=== PATIENT | male | born 1975 | race Caucasian/White ===

== ENCOUNTER 2021-01-21 09:54 | Emergency (ER) | payer SELFPAY ==
[2021-01-21 10:29] VITALS: BP 150/87; PULSE 78; RESP 18; TEMP 36.4; O2SAT 97; BMI 31.6
[2021-01-21 10:33] VITALS: BP 150/87; PULSE 73; RESP 20; TEMP 36.7; O2SAT 95
--- NOTE | 2021-01-21 10:35 | ED_ITS ---
Documented by User: MANUEL Tiwari 01/21/21 12:04 HPI - SOB/Dyspnea General: Chief Complaint: Shortness of Breath/Dyspnea Stated Complaint: DIFF BREATHING: ASTHMA Time Seen by Provider: 01/21/21 10:34 History of Present Illness: HPI Narrative: Patient is a 45-year-old male comes to the ED with wheezing. Patient has a history of asthma. He says he is currently out of his rescue inhaler and needs to get a refill. His wheezing s tarted on Wednesday. He has been out of his rescue inhaler and his wheezing since Wednesday is just progressed. Today he started feeling a little tired that is having a cough as well that is nonproductive and dry. Denies any fever, chills, chest pain, abdominal pain, nausea/vomiting, bladder or bowel symptoms. He just moved to the area and does not currently have a PCP, but is going to start calling around to get established with one. Associated symptoms: Deny abdominal pain, chest pain, fever(s), nausea, orthopnea, palpitations or vomiting Review of Systems Const: Denies: fever(s), chills or fatigue Eyes: Denies: change in vision or eye discomfort ENMT: Denies: throat pain, odynophagia, nasal discharge or nasal congestion Card: Denies: chest pain, palpitations, edema, swelling of feet/ankles, dyspnea on exertion or orthopnea Resp: Reports: dyspnea, non-productive cough and wheezing; Denies: productive cough GI: Denies: abdominal pain, nausea, vomiting, diarrhea, constipation or hematochezia : Denies: flank pain, difficulty urinating, dysuria or hematuria Musc: Denies: neck pain, back pain or extremity swelling Skin/Breast: Denies: rash or new lesions Neuro: Denies: headache(s), numbness in extremities or weakness in extremities Physical Exam Const: COMMON NORMALS: no acute distress, patient oriented x3 and alert GENERAL APPEARANCE: cooperative and comfortable HENMT: COMMON NORMALS: normocephalic HEAD & SCALP: normocephalic MOUTH: Normal oral and palatal mucosa present THROAT: posterior oropharynx normal and uvula midline Neck/C-Spine: COMMON NORMALS: supple GENERAL: Yes normal visual inspection Resp: COMMON NORMALS: normal respiratory effort, No retractions and No use of accessory muscles EFFORT & INSPECTION: Yes able to speak in complete sentences, No tachypneic, No respiratory distress and No labored AUSCULTATION: wheezes (Patient has expiratory wheezing throughout lungs bilaterally.) expiratory wheezes and throughout Cardio: COMMON NORMALS: regular rate, regular rhythm, S1 normal heart sound present, S2 normal heart sound present, No gallops present (Cardio), No clicks present (Cardio), No murmurs present (Cardio) and Peripheral pulses 2+ throughout RATE: regular rate RHYTHM: regular rhythm HEART SOUNDS: S1 normal heart sound present and S2 normal heart sound present PERIPHERAL PULSES: Peripheral pulses 2+ throughout GI: COMMON NORMALS: Normal to inspection, nondistended, normoactive bowel sounds present, Soft to palpation, non-tender and no masses PALPATION: Yes Soft to palpation : COMMON NORMALS: Yes no CVA tenderness BLADDER/KIDNEY EXAM: Yes no CVA tenderness Back/Pelvis: COMMON NORMALS: no CVA tenderness Extremity: COMMON NORMALS: normal to inspection Neuro: COMMON NORMALS: patient oriented x3 and moves all extremities SENSORIUM/ORIENTATION: Yes alert Skin: GENERAL SKIN EXAM: dry skin Course Reevaluation(s): Reevaluation #1: Listen to patient's lung sounds after he received DuoNeb breathing treatment. Lung sounds improved and wheezing improved. Patient says he feels a lot better and is able to breathe better. O2 sat was 98% while I was in the room. Patient did not appear to be in any labored breathing. Time: 11:21 Vital Signs: Vital signs: Vital Signs Temperature 98.1 F 01/21/21 10:33 Pulse Rate 81 01/21/21 11:32 Respiratory Rate 16 01/21/21 11:32 Blood Pressure 123/72 01/21/21 11:32 Pulse Oximetry 97 01/21/21 11:32 MDM - SOB/Dyspnea MDM Narrative: Medical decision making narrative: Patient is a 45-year-old male comes to the ED with wheezing and shortness of breath. He has a history of asthma and is currently out of his albuterol inhaler. Wheezing started on Wednesday. Patient appears nontoxic and in no acute distress. Vitals are stable and O2 sat is at 97% on room air. Patient has bilateral wheezing throughout the lungs upon auscultation. The rest of exam is benign. Chest x-ray showed no acute findings. Patient was given a DuoNeb breathing treatment while here in the ED and is lung sounds improved and wheezing improved. Patient was also given a dose of Solu-Medrol while here in the ED. Patient diagnosed with asthma with exacerbation and discharged home with a prescription for prednisone and an albuterol inhaler. He was told to follow-up with his PCP in 7 to 10 days for reevaluation. I offered to place a referral with case management for patient be established with a PCP but he refused and said he would like to call around on his own. Return to ED precautions given. Patient understood and agreed with plan. Imaging Data^: CXR: Attestation: I personally reviewed and interpreted this imaging study as follows: Radiologist's impression: [address] [place] [address] XRay Report Signed Patient: Aubrey Musa Unit #: [id number] : 1975 Age/Sex: 45 / M ADM Date: 01/21/21 Loc: ER Room/Bed: Attending Dr: Ordering Provider/Ordering MD: Lion Hobbs Date of Service: 01/21/21 Procedure(s): XR chest 1V portable [id number] Accession Number(s): [id number] Report Number: [id number] WS: [id number] PORTABLE CHEST HISTORY: wheezing COMPARISON: None available. Lungs are clear and well expanded. No pleural effusion or pneumothorax. Cardiac size: Normal. Mediastinum/Aorta: Normal mediastinum. No osseous abnormality seen. XR/XR chest 1V portable [id number] IMPRESSION: Unremarkable portable chest. Dictated By: Dayan Aponte DO Signed By: Dayan Aponte DO Signed Date/Time: 01/21/21 1119 DD/ 1118 Discharge Plan Discharge Patient Disposition: Home Clinical Impression: Asthma with exacerbation Qualifiers: Asthma severity: mild Asthma persistence: intermittent Qualified Code(s): J45.21 - Mild intermittent asthma with (acute) exacerbation Condition: Stable Prescriptions: New albuterol sulfate 90 mcg/actuation HFA aerosol inhaler 2 inh inhalation Q6H PRN (Reason: shortness of breath or wheezing) Qty: 8.5 RF: 0 prednisone 20 mg tablet 20 mg PO BID 5 Days Qty: 10 RF: 0 Discharge Orders: Discharge ED (Routine); Ordered 01/21/21 Ordered By: Lion Hobbs Discharge Diet: Regular Discharge Activity: Increase activity as tolerated Patient Instructions: Asthma (DC) Activity Restrictions/Additional Instructions: Follow-up with medical provider as directed. Schedule appointment to be seen by a primary care physician for follow-up in the next 7 to 10 days. Take medications as prescribed. You can start taking the the first dose of prescribed prednisone tomorrow. Return to the ER or your medical provider if condition worsens. Please read and understand discharge instructions. Thank you for choosing [facility] for your healthcare needs today. Please realize this is an emergency room and that we are providing you with a medical screening exam and this may not be complete and all inclusive of all the testing and or work up that you may need to determine your ailment or severity of your illness. It is very important that you follow up as instructed or that you return to the Emergency Department should you have concerns or if your condition changes or worsens in any way. Coding Level of Care Code ED Can Technician for Chg Fwd Exam Comprehensive Documented by User: Prabhjot Cavanaugh DO 01/21/21 13:42 HPI - SOB/Dyspnea General: Chief Complaint: Shortness of Breath/Dyspnea Stated Complaint: DIFF BREATHING: ASTHMA Time Seen by Provider: 01/21/21 10:34 Course Vital Signs: Vital signs: Vital Signs Temperature 98.1 F 01/21/21 10:33 Pulse Rate 81 01/21/21 11:32 Respiratory Rate 16 01/21/21 11:32 Blood Pressure 123/72 01/21/21 11:32 Pulse Oximetry 97 01/21/21 11:32 MDM - SOB/Dyspnea MDM Narrative: Medical decision making narrative: Reviewed chart with Lion by MANUEL agree with assessment and plan Discharge Plan Discharge Patient Disposition: Home Clinical Impression: Asthma with exacerbation Qualifiers: Asthma severity: mild Asthma persistence: intermittent Qualified Code(s): J45.21 - Mild intermittent asthma with (acute) exacerbation Condition: Stable Prescriptions: New albuterol sulfate 90 mcg/actuation HFA aerosol inhaler 2 inh inhalation Q6H PRN (Reason: shortness of breath or wheezing) Qty: 8.5 RF: 0 prednisone 20 mg tablet 20 mg PO BID 5 Days Qty: 10 RF: 0 Discharge Orders: Discharge ED (Routine); Ordered 01/21/21 Ordered By: Lion Hobbs Discharge Diet: Regular Discharge Activity: Increase activity as tolerated Patient Instructions: Asthma (DC) Activity Restrictions/Additional Instructions: Follow-up with medical provider as directed. Schedule appointment to be seen by a primary care physician for follow-up in the next 7 to 10 days. Take medications as prescribed. You can start taking the the first dose of prescribed prednisone tomorrow. Return to the ER or your medical provider if condition worsens. Please read and understand discharge instructions. Thank you for choosing [facility] for your healthcare needs today. Debora simeon realize this is an emergency room and that we are providing you with a medical screening exam and this may not be complete and all inclusive of all the testing and or work up that you may need to determine your ailment or severity of your illness. It is very important that you follow up as instructed or that you return to the Emergency Department should you have concerns or if your condition changes or worsens in any way. Coding Level of Care Code ED Can Technician for Ramandeep Cleaning Exam Comprehensive
--- NOTE | 2021-01-21 10:40 | XR_ITS ---
WS: [id number] PORTABLE CHEST HISTORY: wheezing COMPARISON: None available. Lungs are clear and well expanded. No pleural effusion or pneumothorax. Cardiac size: Normal. Mediastinum/Aorta: Normal mediastinum. No osseous abnormality seen. XR/XR chest 1V portable [id number] IMPRESSION: Unremarkable portable chest.
[2021-01-21] MEDS: ipratropium-albuterol 3 mL Neb 6 ML INHALATION (10:54)
[2021-01-21 10:57] VITALS: PULSE 74; RESP 22; O2SAT 97
[2021-01-21 10:58] VITALS: PULSE 79
[2021-01-21 11:04] VITALS: PULSE 85; RESP 20; O2SAT 94
[2021-01-21] MEDS: albuterol 8 gm MDI 2 PUFF INHALATION (11:04)
[2021-01-21 11:32] VITALS: BP 123/72; PULSE 81; RESP 16; O2SAT 97
--- NOTE | 2021-01-21 11:32 | PC.NURSE ---
THIS NURSE REASSESSED PATIENT. PATIENT FEELS MUCH BETTER AFTER BREATHING TREATMENT. DECREASED WHEEZING BILATERALLY.
== END 2021-01-21 11:39 | disposition home or self-care (01) ==
PROVIDERS: Emergency Provider Physician Assistant
DX: J45.21 Mild intermittent asthma with (acute) exacerbation (principal)
CPT/HCPCS: 71045; 94640; 96372; 99284; J2930; J3535

== ENCOUNTER 2021-01-24 11:46 | Inpatient (IN) | payer SELFPAY ==
[2021-01-24] VITALS (9 sets, daily range): BP systolic 133–144; BP diastolic 74–94; PULSE 64–90; RESP 16–20; TEMP 36.8–36.9; O2SAT 95–97; BMI 32.8
--- NOTE | 2021-01-24 12:18 | CT_ITS ---
WS: [id number] CT ABDOMEN PELVIS TECHNIQUE: Contrast-enhanced CT of the abdomen and pelvis with coronal and sagittal reformatted image s. CLINICAL INFORMATION: rule out obstruction/pathologies COMPARISON: None. DLP: 1720.[address] scans at [facility] use at least one of these dose optimization techniques: automated e xposure control; mA and/or kV adjustment per patient size (includes targeted exams where dose is matc hed to clinical indication); or iterative reconstruction. FINDINGS: Diffuse fatty infiltration liver. Normal portal vein and splenic vein. Normal gallbladder. Normal spl een. Normal GE junction. Lung bases are well aerated. Adrenal glands are normal. Normal renal parench ymal enhancement. No hydronephrosis. Normal pancreatic parenchymal enhancement. Normal portal vein an d splenic vein. Normal caliber abdominal aorta. A few sigmoid diverticuli. No evidence of acute diverticulitis. Mild right colon and cecal constipation. Postoperative changes at the ileocecal valve. Tiny amount of flui d in the right pericolic gutter. Fecalization of the terminal ileum. Distended loops of fluid-filled small bowel in the pelvis with mu cosal enhancement can be seen with enteritis including inflammatory bowel disease and/or developing p artial small bowel obstruction. A few prominent periaortic lymph nodes likely reactive. Proximal smal l bowel is more normal appearance. No free fluid in the pelvis. Normal lumbar spine. CT/CT abdomen pelvis w con* [id number] IMPRESSION: 1. Mild fluid-filled distention of small bowel loops in the pelvis and right l ower quadrant with fecalization terminal ileum. Findings likely due to small johanne wel enteritis including inflammatory bowel disease versus developing distal sma ll bowel obstruction. 2. Prior postoperative changes at the ileocecal valve. 3. Mild constipation right colon. Colon is otherwise unremarkable. 4. A few reactive periaortic lymph nodes. 5. No other acute findings.
[2021-01-24] MEDS: morphine 4 mg/mL SDV 1 mL IVP ×2 (12:58→15:21)
[2021-01-24] MEDS: ondansetron 2 mg/ML SDV 2 mL 4 MG IVP (12:59)
[2021-01-24] MEDS: sodium chloride 0.9% 1,000 ML 999 ML IV (12:59)
[2021-01-24] MEDS: iohexol 300 mg/mL 100 mL Btl IV (13:04)
--- NOTE | 2021-01-24 13:04 | W.ED.GENADLT ---
HPI - General Adult General: Chief complaint: Abdominal Pain Stated complaint: Abdominal Pain Time Seen by Provider: 01/24/21 11:58 History of Present Illness: HPI narrative: Patient is a 45-year-old male with a history of ulcerative colitis complicated by prior intra-abdominal abscess requiring small bowel and large bowel resection, prior history of appendectomy, who presents the emergency room with complaints of severe diffuse abdominal pain worse on the left side since yesterday. Patient tells me this cramping abdominal pain last for few minutes at a time is severe and sharp. Patient is concerned that this pain is very similar to his prior intra-abdominal abscess. Patient says that at his baseline he has been having diarrhea since his prior surgery 20 years ago. However, since yesterday, he has noticed increasing cramping pain at night. Patient took 2 doses of Imodium without resolution cramping pain. Since then also patient has noticed decreased stooling and decreased flatus. Patient denies any fever/chill. He has had significant nausea yesterday and one episode of emeis. Patient does report decreased p.o. intake. Denies any melena/hematochezia, history of kidney stones, symptoms at this time. Denies any chest pain shortness breath, dilatation, lightheadedness. Of note, patient has a history of ulcerative colitis, is currently not on any medicine. Onset: 1 day ago Duration:1 day Location:home Severity:moderate/severe Review of Systems Narrative: Constitutional: No fever, no chills. HEENT: No vision changes CV: No chest pain, no palpitations PULM: no cough, no dyspnea. GI: +abdominal pain, +N/+V/-D. : No dysuria MSKEL: No muscle pain SKIN: No new rashes, no lesions. NEURO: No headache, no focal weakness. HEME: No visible bruises PSYCH: Normal mood PFSH ED PFSH: Medical History (Updated 01/24/21 @ 16:24 by Juan Sutton MD) History of asthma Surgical History (Updated 01/24/21 @ 16:24 by Juan Sutton MD) History of bowel resection Family History (Updated 01/24/21 @ 16:24 by Juan Sutton MD) Father Diabetes Social History (Updated 01/24/21 @ 16:24 by Juan Sutton MD) Smoking and tobacco status: never smoked Alcohol intake: former Substance/Drug Use: never Physical Exam Narrative: EXAM NARRATIVE: Head: Atraumatic Eyes: PERRL, conjunctiva without injection ENT: Mucous membrane moist NECK: Supple, ROM intact LUNGS: LCTAB, no crackles/rhonchi CV: RRR ABDOMEN: Soft, no focal TTP. NO guarding rebound, guarding, rigidity. No CVA tenderness to percussion. Neg Cortes/Neg McBurney's point tenderness, no suprabupic tenderness to palpation. EXTREMITY: Normal ROM SKIN: No rash or erythema NEURO: Awake and alert, no focal motor deficits PSYCH: Normal mood and affect Course Vital Signs: Vital signs: Vital Signs Temperature 98.2 F 01/25/21 11:50 Pulse Rate 70 01/25/21 11:50 Respiratory Rate 16 01/25/21 11:50 Blood Pressure 132/84 01/25/21 11:50 Pulse Oximetry 94 01/25/21 11:50 MDM - General Adult MDM Narrative: Medical decision making narrative: 45-year-old male presenting to the emergency room with worsening crampy abdominal pain x1 day with decreased stooling. On exam, patient is hemodynamically stable without any focal abdominal tenderness. Patient was observed in the emergency room, he had 1 episode of severe cramping in which he was observed to be grimacing and in moderate distress. Given history of prior abdominal surgeries, decision was made to order blood work and CT scan today. Patient received IVF, Zofran, and morphine for pain and nausea. On reassessment, patient was found to have some enteritis versus small early small bowel obstruction. White count within normal. Patient continues to have intermittent severe abdominal pain. Patient received multiple doses of pain opiate medication with minimal relief of pain symptoms. Patient will be admitted hospital for early small bowel obstrusction. Dr. Bates from general surgery is following patient. Disposition: Admission Lab Data: Labs: Lab Results 01/24/21 01/24/21 01/24/21 14:40 14:49 14:58 WBC 8.1 10^3/uL 10^3/ uL (4.0-10.0) RBC 4.45 10^6/uL 10^6 /uL (4.1-5.3) Hgb 13.8 g/dL g/dL (11.7-16.6) Hct 41.9 % L % (42.0-52.0) MCV 94.2 fl H fl (80-94) MCH 31.0 pg pg (28.0-34.0) MCHC 32.9 g/dL g/dL (30.0-36.0) RDW 13.3 % % (12.1-15.1) Plt Count 265 10^3/cmm 10^3 /cmm (130-400) MPV 10.3 fL fL (7.4-10.4) Neut % (Auto) 72.9 % % Lymph % (Auto) 17.3 % % [place] % (Auto) 7.9 % % Eos % (Auto) 1.0 % % Baso % (Auto) 0.4 % % Neut # (Auto) 5.94 10^3/uL 10^3 /uL (1.8-7.7) Lymph # (Auto) 1.4 10^3/uL 10^3/ uL (0.8-4.8) [place] # (Auto) 0.6 10^3/uL 10^3/ uL (0.2-0.9) Eos # (Auto) 0.1 10^3/uL 10^3/ uL (0.0-0.8) Baso # (Auto) 0.0 10^3/uL 10^3/ uL (0.0-0.1) Nucleated RBC % (a uto) 0 % % Nucleated RBCs # 0.0 /100WBC /100W BC Sodium 135 mmol/L L mmol /L (136-145) Potassium 4.1 mmol/L mmol/L (3.5-5.1) Chloride 108 mmol/L H mmol /L (98-107) Carbon Dioxide 17 mmol/L L mmol/ L (22-29) Anion Gap 14.1 (5-19) BUN 14 mg/dL mg/dL (6-20) Creatinine 0.5 mg/dL L mg/dL (0.7-1.2) GFR Calculation 180.6 mL/min H mL /min (90-130) Glucose 85 mg/dL mg/dL (65-115) Calculated Osmolal ity 280 mOsm/kg L mOs m/kg (285-295) Calcium 8.0 mg/dL L mg/dL (8.5-10.5) Total Bilirubin 0.5 mg/dL mg/dL (0.15-1.2) AST 26 U/L U/L (0-40) ALT 42 U/L H U/L (0-41) Alkaline Phosphata se 53 IU/L IU/L (40-130) Total Protein 6.3 g/dL L g/dL (6.6-8.7) Albumin 3.4 g/dL L g/dL (3.5-5.2) Globulin 2.9 g/dL g/dL (1.3-4.6) Lipase 27 U/L U/L (13-60) Urine Color Yellow (Yellow) Urine Appearance Clear (CLEAR) Urine pH 5 (5-7) Ur Specific Gravit y 1.015 (1.005-1.030) Urine Protein Neg (Negative) Urine Glucose (UA) Norm (Normal) Urine Ketones 1+ H (Negative) Urine Blood Neg (Negative) Urine Nitrate Negative (Negative) Urine Bilirubin Neg (Negative) Urine Urobilinogen Norm mg/dL mg/dL (Negative) Ur Leukocyte Yuli ase Negative (Negative) Imaging Data^: Other Imaging: Radiologist's impression: [place] [id number] Scan ReportSigned Patient: Aubrey Musa #: [id number]: [id number]#:[id number]/Sex: 45 / MADM Date: 01/24/21Loc: [facility]/Bed:Attending Dr: Ordering Provider/Ordering MD: Adryan Blanton MD Date of Service: 01/24/21 Procedure(s): CT abdomen pelvis w con* [id number] Accession Number(s): [id number] Report Number: [id number] WS: [id number] CT ABDOMEN PELVIS TECHNIQUE: Contrast-enhanced CT of the abdomen and pelvis with coronal and sagittal reformatted images. CLINICAL INFORMATION: rule out obstruction/pathologies COMPARISON: None. DLP: 1720.[address] scans at [facility] use at least one of these dose optimization techniques: automated exposure control; mA and/or kV adjustment per patient size (includes targeted exams where dose is matched to clinical indication); or iterative reconstruction. FINDINGS: Diffuse fatty infiltration liver. Normal portal vein and splenic vein. Normal gallbladder. Normal spleen. Normal GE junction. Lung bases are well aerated. Adrenal glands are normal. Normal renal parenchymal enhancement. No hydronephrosis. Normal pancreatic parenchymal enhancement. Normal portal vein and splenic vein. Normal caliber abdominal aorta. A few sigmoid diverticuli. No evidence of acute diverticulitis. Mild right colon and cecal constipation. Postoperative changes at the ileocecal valve. Tiny amount of fluid in the right pericolic gutter. Fecalization of the terminal ileum. Distended loops of fluid-filled small bowel in the pelvis with mucosal enhancement can be seen with enteritis including inflammatory bowel disease and/or developing partial small bowel obstruction. A few prominent periaortic lymph nodes likely reactive. Proximal small bowel is more normal appearance. No free fluid in the pelvis. Normal lumbar spine. CT/CT abdomen pelvis w con* [id number] IMPRESSION: 1. Mild fluid-filled distention of small bowel loops in the pelvis and right lower quadrant with fecalization terminal ileum. Findings likely due to small bowel enteritis including inflammatory bowel disease versus developing distal small bowel obstruction. 2. Prior postoperative changes at the ileocecal valve. 3. Mild constipation right colon. Colon is otherwise unremarkable. 4. A few reactive periaortic lymph nodes. 5. No other acute findings. Dictated By:Andre Bunn MDSigned By:Andre Bunn MDSigned Date/Time:01/24/21 1325DD/ [address] [place], [place] [address]OSsp ReportSigned Patient: Aubrey Musa AUnchato #: [id number]: 1975Acct#:[id number]/Sex: 45 / MADM Date: 01/21/21Loc: [facility]/Bed:Attending Dr: Ordering Provider/Ordering MD: Lion Hobbs Date of Service: 01/21/21 Procedure(s): XR chest 1V portable [id number] Accession Number(s): [id number] Report Number: [id number] WS: [id number] PORTABLE CHEST HISTORY: wheezing COMPARISON: None available. Lungs are clear and well expanded. No pleural effusion or pneumothorax. Cardiac size: Normal. Mediastinum/Aorta: Normal mediastinum. No osseous abnormality seen. XR/XR chest 1V portable [id number] IMPRESSION: Unremarkable portable chest. 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
[2021-01-24 15:07] LABS: Basophils % 0.4 %; Eosinophils # 0.1 10^3/uL (0.0-0.8); Hematocrit 41.9 % (42.0-52.0); Hemoglobin 13.8 g/dL (11.7-16.6); Lymphocytes # 1.4 10^3/uL (0.8-4.8); Lymphocytes % 17.3 %; Mean Corpuscular HGB Conc 32.9 g/dL (30.0-36.0); Mean Corpuscular Volume 94.2 fl (80-94); Mean Platelet Volume 10.3 fL (7.4-10.4); Monocytes # 0.6 10^3/uL (0.2-0.9); Monocytes % 7.9 %; Neutrophils # 5.94 10^3/uL (1.8-7.7); Neutrophils % 72.9 %; Nucleated Red Blood Cells % 0 %; Platelet Count 265 10^3/cmm (130-400); Red Blood Count 4.45 10^6/uL (4.1-5.3); Red Cell Distribution Width 13.3 % (12.1-15.1); White Blood Count 8.1 10^3/uL (4.0-10.0)
[2021-01-24 15:13] LABS: Alanine Aminotransferase 42 U/L (0-41); Albumin Level 3.4 g/dL (3.5-5.2); Anion Gap 14.1 (5-19); Aspartate Amino Transferase 26 U/L (0-40); Blood Urea Nitrogen 14 mg/dL (6-20); Carbon Dioxide 17 mmol/L (22-29); Chloride 108 mmol/L (98-107); Globulin 2.9 g/dL (1.3-4.6); Glomerular Filtration Rate 180.6 mL/min (90-130); Glucose 85 mg/dL (65-115); Osmolality Calculated 280 mOsm/kg (285-295); Potassium 4.1 mmol/L (3.5-5.1); Sodium 135 mmol/L (136-145); Total Bilirubin 0.5 mg/dL (0.15-1.2); Total Protein 6.3 g/dL (6.6-8.7)
[2021-01-24 15:14] LABS: Alkaline Phosphatase 53 IU/L (40-130); Lipase 27 U/L (13-60)
[2021-01-24 16:03] LABS: Add Urine Microscopic? NO; Charge for UA Resulting for Rev
--- NOTE | 2021-01-24 16:20 | P.HP_ITS ---
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, besides asthma no other health problems, he tells me that last night, he had some chicken and fries, nothing out of the ordinary, and throughout the night he start developed abdominal pain, first in the right upper quadrant, then in the epigastric region, then radiating down to the left lower quadrant, associate with nausea, vomiting, he actually induced vomiting to make himself feel better, he has not eaten anything since then, does not really have an appetite, but has not had a bowel movement since yesterday, no fevers, chills, has not passed any gas, no lightheadedness, dizziness, no history of food poisoning, his other friends also have the same chicken and they are doing okay, no history of celiac disease, no history of gluten sensitivity, Review of Systems Const: Denies: fever(s), chills, fatigue or malaise Eyes: Denies: change in vision or blurry vision ENMT: Denies: nasal congestion Card: Denies: chest pain, palpitations or edema Resp: Denies: dyspnea, productive cough, non-productive cough or wheezing GI: Reports: abdominal pain, nausea, vomiting and diarrhea; Denies: hematemesis, constipation, hematochezia or melena : Denies: flank pain, difficulty urinating, dysuria or urinary frequency Musc: Denies: neck pain or back pain Skin/Breast: Denies: rash Neuro: Denies: headache(s), dizziness or vertigo Endo: Denies: polyuria or polydipsia Medications/Allergies Home Medications Medication Instructions Recorded Confirmed Last Taken Type albuterol sulfate 2 inh INHALATION Q6H PRN #8.5 g 01/21/21 01/24/21 Unknown Rx prednisone 20 mg PO BID 5 Days #10 tab MDD 01/21/21 01/24/21 Unknown Rx see pharmacy comment loperamide [Imodium A-D] 2 mg PO Q4H PRN 01/24/21 01/24/21 Unknown History Allergies Allergy/AdvReac Type Severity Reaction Status Date / Time acetaminophen [From Tylenol] Allergy Intermediate ALGY-Rash Verified 01/24/21 14:35 PFSH Acute PFSH: Medical History (Updated 01/24/21 @ 16:24 by Juan Sutton MD) History of asthma Surgical History (Updated 01/24/21 @ 16:24 by Juan Sutton MD) History of bowel resection Family History (Updated 01/24/21 @ 16:24 by Juan Sutton MD) Father Diabetes Social History (Updated 01/24/21 @ 16:24 by Juan Sutton MD) Smoking and tobacco status: never smoked Alcohol intake: former Substance/Drug Use: never Vitals/I&O/Wt Last Vital Signs Temp 98.3 F 01/24/21 11:51 Pulse 89 01/24/21 12:56 Resp 18 01/24/21 15:21 BP 144/74 01/24/21 12:56 Pulse Ox 95 01/24/21 11:51 Physical Exam Const: COMMON NORMALS: no acute distress and patient oriented x3 GENERAL APPEARANCE: cooperative and comfortable HENMT: COMMON NORMALS: normocephalic HEAD & SCALP: normocephalic Eye: COMMON NORMALS: Equal, round and reactive pupils present and EOMs intact bilaterally GENERAL EYE: appearance normal, both eyes and all related structures PUPIL: Yes Equal, round and reactive pupils present Neck/C-Spine: COMMON NORMALS: full ROM and no lymphadenopathy THYROID: Thyroid normal Lymph: LYMPHATIC: no lymphadenopathy noted Resp: COMMON NORMALS: normal respiratory effort, No retractions, No use of accessory muscles and clear to auscultation bilaterally AUSCULTATION: clear to auscultation bilaterally Cardio: COMMON NORMALS: regular rate, regular rhythm, S1 normal heart sound present, S2 normal heart sound present, No gallops present (Cardio), No clicks present (Cardio) and No murmurs present (Cardio) RATE: regular rate RHYTHM: regular rhythm HEART SOUNDS: S1 normal heart sound present and S2 normal heart sound present GI: INSPECTION: Yes normal to inspection and Yes abdominal distension AUSCULTATION: Yes Hypoactive bowel sounds present PALPATION: Yes Soft to palpation, No Firmness to palpation present (GI), Yes Tenderness to palpation present (GI) (Minimal generalized tenderness), No Guarding due to palpation present (GI) and No Rigid due to palpation Extremity: COMMON NORMALS: normal to inspection, full ROM and no pedal edema Neuro: COMMON NORMALS: patient oriented x3, CN's II-XII intact bilaterally, mo ves all extremities and no focal motor deficits Psych: COMMON NORMALS: mental status grossly normal, Normal thought process present and cooperative THOUGHT PROCESS: Normal thought process present Data : 01/24/21 14:58 01/24/21 14:40 A&P Assessment and plan (1) Abdominal pain: CT scan shows: 1. Mild fluid-filled distention of small bowel loops in the pelvis and right lower quadrant with fecalization terminal ileum. Findings likely due to small bowel enteritis including inflammatory bowel disease versus developing distal small bowel obstruction. 2. Prior postoperative changes at the ileocecal valve. 3. Mild constipation right colon. Colon is otherwise unremarkable. 4. A few reactive periaortic lymph nodes. -With history of small and large bowel resection with intra-abdominal abscess with appendectomy, etiology uncertain, but he was told for Crohn's disease -No follow-up since then, no history of EGD or colonoscopy -Currently having intractable pain, nausea, vomiting -No bowel movement since last night Plan: -Serial abdominal exams -Gentle IV hydration -Morphine for pain -Hold off on antibiotic therapy for now -Zofran for nausea -Stool studies -Slowly advance diet, start with clear liquids -We will need a EGD and colonoscopy at some point -Full code -Lovenox for DVT prophylaxis Status: Acute Attestations Medical Necessity Statement*: Patient requires hospitalization for abdominal pain, outpatient with observation, concerning for enteritis, Coding Level of Care Code 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
[2021-01-24 16:27] LABS: Urine Color Yellow (Yellow)
[2021-01-24 16:28] LABS: Bilirubin Urine Neg (Negative); Blood Urine Neg (Negative); Glucose Urine UA Norm (Normal); Ketones Urine 1+ (Negative); Leukocyte Esterase Urine Negative (Negative); Nitrate Urine Negative (Negative); Protein Urine Neg (Negative); Specific Gravity, Urine 1.015 (1.005-1.030); Urine Appearance Clear (CLEAR); Urobilinogen Urine Norm (Negative); pH Urine 5 (5-7)
[2021-01-24] MEDS: morphine 4 mg/mL SDV 1 mL 2 MG IVP ×2 (19:32→23:19)
[2021-01-24] MEDS: enoxaparin 40 mg/0.4 mL Syringe SUBCUT (19:34)
[2021-01-24] MEDS: famotidine 20 mg Tablet PO (19:35)
[2021-01-24] MEDS: sodium chloride 0.9% 1,000 ML 75 ML IV (19:58)
[2021-01-24] MEDS: albuterol 8 gm MDI 1 PUFF INHALATION (20:15)
[2021-01-25] VITALS (13 sets, daily range): BP systolic 122–150; BP diastolic 72–93; PULSE 67–75; RESP 16–24; TEMP 36.6–37; O2SAT 93–98
[2021-01-25] MEDS: albuterol 8 gm MDI 1 PUFF INHALATION ×3 (03:25→14:47)
[2021-01-25 05:06] LABS: Basophils % 0.5 %; Eosinophils # 0.2 10^3/uL (0.0-0.8); Eosinophils % 5.2 %; Hematocrit 38.9 % (42.0-52.0); Hemoglobin 12.5 g/dL (11.7-16.6); Lymphocytes # 1.2 10^3/uL (0.8-4.8); Lymphocytes % 28.9 %; Mean Corpuscular HGB Conc 32.1 g/dL (30.0-36.0); Mean Corpuscular Hemoglobin 30.4 pg (28.0-34.0); Mean Corpuscular Volume 94.6 fl (80-94); Monocytes # 0.3 10^3/uL (0.2-0.9); Monocytes % 7.1 %; Neutrophils # 2.47 10^3/uL (1.8-7.7); Neutrophils % 58.1 %; Nucleated Red Blood Cells % 0 %; Platelet Count 199 10^3/cmm (130-400); Red Blood Count 4.11 10^6/uL (4.1-5.3); Red Cell Distribution Width 13.4 % (12.1-15.1); White Blood Count 4.3 10^3/uL (4.0-10.0)
[2021-01-25 05:41] LABS: Alanine Aminotransferase 38 U/L (0-41); Albumin Level 3.2 g/dL (3.5-5.2); Alkaline Phosphatase 49 IU/L (40-130); Aspartate Amino Transferase 23 U/L (0-40); Blood Urea Nitrogen 10 mg/dL (6-20); Calcium 7.9 mg/dL (8.5-10.5); Carbon Dioxide 23 mmol/L (22-29); Chloride 104 mmol/L (98-107); Globulin 2.6 g/dL (1.3-4.6); Glomerular Filtration Rate 146.4 mL/min (90-130); Glucose 117 mg/dL (65-115); Magnesium 2.2 mg/dL (1.7-2.3); Osmolality Calculated 280 mOsm/kg (285-295); Sodium 135 mmol/L (136-145); Thyroid Stimulating Hormone 0.97 uIU/mL (0.27-4.20); Total Bilirubin 0.5 mg/dL (0.15-1.2); Total Protein 5.8 g/dL (6.6-8.7)
[2021-01-25 05:56] LABS: Procalcitonin 0.04 ng/mL (0-0.5)
[2021-01-25] MEDS: morphine 4 mg/mL SDV 1 mL 2 MG IVP (07:03)
--- NOTE | 2021-01-25 08:36 | P.CONIM_ITS ---
Providers/Reason For Consult Consulting Physician/Specialty*: General Surgery Dr. Bates Reason for Consult*: Suspected bowel obstruction Attending Physician: Juan Sutton MD History of Present Illness History of Present Illness Aubrey Musa is a 45 year old male who presented to the ER yesterday with abdominal pain for 2 days. Patient states that he also had an episode of emesis the day before. The pain is generalized, does not radiate, no aggravating or relieving factors. Denies any fevers or chills. 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 He therefore stopped taking 1 to 2 tablets of Imodium daily now he has 1- 3 loose bowel movements a day. When his symptoms initially started he thought he was constipated but he wasn't sure since he usually had diarrhea Review of Systems General: Reports: 10 or more systems reviewed and unremarkable except in HPI and below Meds/Allergies Home Medications and Allergies Home Medications Medication Instructions Recorded Confirmed Last Taken Type albuterol sulfate 2 inh INHALATION Q6H PRN #8.5 g 01/21/21 01/24/21 Unknown Rx prednisone 20 mg PO BID 5 Days #10 tab MDD 01/21/21 01/24/21 Unknown Rx see pharmacy comment loperamide [Imodium A-D] 2 mg PO Q4H PRN 01/24/21 01/24/21 Unknown History Allergies Allergy/AdvReac Type Severity Reaction Status Date / Time acetaminophen [From Tylenol] Allergy Intermediate ALGY-Rash Verified 01/24/21 14:35 Current Medications Current Medications Generic Name Dose Route Start Last Admin Trade Name Freq PRN Reason Stop Dose Admin Albuterol Sulfate 1 puff 01/24/21 18:18 01/25/21 07:42 Albuterol 8 Gm Mdi INHALATION 1 puff Q6H PRN Administration shortness of breath or wheezing Enoxaparin Sodium 40 mg 01/24/21 18:30 01/24/21 19:34 Enoxaparin 40 Mg/0.4 Ml Syringe SUBCUT 40 mg Q24H JASE Administration Famotidine 20 mg 01/24/21 18:18 01/24/21 19:35 Famotidine 20 Mg Tablet PO 20 mg BID JASE Administration Sodium Chloride 1,000 mls @ 75 mls/hr 01/24/21 18:18 01/24/21 19:58 Sodium Chloride 0.9% IV 75 mls/hr .[id number] JASE Administration Morphine Sulfate 2 mg 01/24/21 18:18 01/25/21 07:03 Morphine 4 Mg/Ml Sdv 1 Ml IVP 2 mg Q4H PRN Administration SEVERE PAIN PFSH Acute PFSH: Medical History (Updated 01/24/21 @ 16:24 by Juan Sutton MD) History of asthma Surgical History (Updated 01/24/21 @ 16:24 by Juan Sutton MD) History of bowel resection Family History (Updated 01/24/21 @ 16:24 by Juan Sutton MD) Father Diabetes Social History (Updated 01/24/21 @ 16:24 by Juan Sutton MD) Smoking and tobacco status: never smoked Alcohol intake: former Substance/Drug Use: never Vitals/I&O/Wt Last Vital Signs Temp 98.6 F 01/25/21 07:39 Pulse 73 01/25/21 07:42 Resp 20 H 01/25/21 07:42 BP 135/86 01/25/21 07:39 Pulse Ox 97 01/25/21 07:42 01/24/21 01/25/21 01/25/21 22:59 06:59 14:59 Intake Total 480 / 480 Output Total 200 / 200 Balance 280 / 280 Weight last 48 hrs Weight 249 lb Physical Exam Narrative: EXAM NARRATIVE: HEENT: Normocephalic Eye: Sclera /conjunctiva normal Abdomen: Soft to palpation, mildly tender, distended, no guarding or rigidity Neurological: Oriented to place person and time Skin: Intact, no lesions appreciated on gross exam A&P Assessment and plan (1) Small bowel obstruction: 45-year-old male with longstanding history of diarrhea has been taking Imodium daily who has had a prior right hemicolectomy. Patient has generalized abdominal pain but no evidence of peritonitis. WBC: 4.[address] abdomen pelvis performed yesterday which showed fecalization and moderate amount of stool throughout the entire colon. To monitor magnesium citrate and milk of molasses enema today Abdominal series tomorrow a.m. Daily labs Pepcid for GI prophylaxis Lovenox for DVT prophylaxis Discussed with the patient that he could still have small bowel obstruction from adhesions from prior surgery. But at this point will try an aggressive bowel regimen to see if it helps relieve his symptoms. If there is no improvement in the next 48 to 72 hours he might still need a diagnostic laparoscopy, possible laparotomy. 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
[2021-01-25] MEDS: magnesium citrate Btl 296 mL PO ×2 (09:23→12:52)
[2021-01-25] MEDS: famotidine 20 mg Tablet PO ×2 (09:23→17:57)
[2021-01-25] MEDS: sodium chloride 0.9% 1,000 ML 75 ML IV (09:23)
[2021-01-25] MEDS: HYDROmorphone 1 mg/mL INJ 1 mL IVP ×3 (10:08→19:05)
[2021-01-25] MEDS: ibuprofen 600 mg Tablet PO (10:09)
--- NOTE | 2021-01-25 13:01 | PM.PN ---
Subjective Subjective: Interval history: Patient was seen this morning, continues to have generalized abdominal pain, he tried to have a bowel movement, but has not had one as of yet, he is received milk of magnesia, no nausea, no vomiting Vitals/I&O/Wt Last Vital Signs Temp 98.2 F 01/25/21 11:50 Pulse 70 01/25/21 11:50 Resp 16 01/25/21 11:50 BP 132/84 01/25/21 11:50 Pulse Ox 94 01/25/21 11:50 01/24/21 01/25/21 01/25/21 22:59 06:59 14:59 Intake Total 480 / 480 1480 / 1480 Output Total 200 / 200 Balance 280 / 280 1480 / 1480 Weight last 48 hrs Weight 112.945 kg Physical Exam Const: COMMON NORMALS: no acute distress and patient oriented x3 Resp: COMMON NORMALS: normal respiratory effort, No retractions, No use of accessory muscles and clear to auscultation bilaterally AUSCULTATION: clear to auscultation bilaterally Cardio: COMMON NORMALS: regular rate, regular rhythm, S1 normal heart sound present and S2 normal heart sound present RATE: regular rate RHYTHM: regular rhythm HEART SOUNDS: S1 normal heart sound present and S2 normal heart sound present GI: COMMON NORMALS: Normal to inspection, nondistended, normoactive bowel sounds present and Soft to palpation PALPATION: Yes Soft to palpation and Yes Tenderness to palpation present (GI) (generalized abdominal pain) Extremity: COMMON NORMALS: no pedal edema Neuro: COMMON NORMALS: patient oriented x3 Psych: COMMON NORMALS: mental status grossly normal Data : 01/25/21 04:20 01/25/21 04:20 A&P Assessment and plan (1) Abdominal pain: CT scan shows: 1. Mild fluid-filled distention of small bowel loops in the pelvis and right lower quadrant with fecalization terminal ileum. Findings likely due to small bowel enteritis including inflammatory bowel disease versus developing distal small bowel obstruction. 2. Prior postoperative changes at the ileocecal valve. 3. Mild constipation right colon. Colon is otherwise unremarkable. 4. A few reactive periaortic lymph nodes. -With history of small and large bowel resection with intra-abdominal abscess with appendectomy, etiology uncertain, but he was told for Crohn's disease -No follow-up since then, no history of EGD or colonoscopy -Currently having intractable pain, no nausea, no vomiting -No bowel movement since last night Plan: -Serial abdominal exams -Gentle IV hydration -Morphine for pain -Does show stool impaction, bowel regimen -Zofran for nausea -Continue clear liquids -General surgery on consult -Full code -Lovenox for DVT prophylaxis Status: Acute Attestations Medical Necessity Statement*: Patient requires hospitalization for possible SBO, moderate stool in the colon, require inpatient admission, greater than 2 midnights Coding Level of Care Code Acute Family Medicine Physician for [facility] Fwd Diagnoses Abdominal pain R10.9
[2021-01-25] MEDS: enoxaparin 40 mg/0.4 mL Syringe SUBCUT (17:57)
[2021-01-26] VITALS (18 sets, daily range): BP systolic 110–146; BP diastolic 71–90; PULSE 58–101; RESP 16–20; TEMP 36.6–36.8; O2SAT 94–98
[2021-01-26] MEDS: HYDROmorphone 1 mg/mL INJ 1 mL IVP ×6 (01:10→19:49)
[2021-01-26] MEDS: sodium chloride 0.9% 1,000 ML 75 ML IV (04:28)
--- NOTE | 2021-01-26 07:50 | XRR_ITS ---
PROCEDURE INFORMATION: Exam: XR Abdomen Exam date and time: 01/26/2021 7:50 AM Age: 45 years old Clinical indication: Condition or disease; Intestinal condition; Obstruction; Additional info: Sbo TECHNIQUE: Imaging protocol: XR of the abdomen. Views: 2 Views. Upright and supine views. COMPARISON: CT abdomen pelvis w con* [id number] 01/24/2021 12:59 PM FINDINGS: Gastrointestinal tract: Normal. No bowel dilation. Intraperitoneal space: Surgical clips are present in the right side of the abdomen. Bones/joints: Unremarkable for age. XR/XR abdomen min 2V [id number] IMPRESSION: No acute abnormality. Radiation Dose CTDIVOL = (mGy): DLP = (mGy-cm)
[2021-01-26] MEDS: famotidine 20 mg Tablet PO ×2 (08:24→18:43)
--- NOTE | 2021-01-26 08:53 | P.PN_ITS ---
Subjective Subjective: Interval history: Patient had multiple bowel movements yesterday with enema, no nausea or vomiting, has some cramping abdominal pain today Vitals/I&O/Wt Last Vital Signs Temp 97.9 F 01/26/21 07:30 Pulse 65 01/26/21 07:30 Resp 16 01/26/21 08:25 BP 121/74 01/26/21 07:30 Pulse Ox 97 01/26/21 07:30 01/25/21 01/26/21 01/26/21 22:59 06:59 14:59 Intake Total 1480 / 3500 300 / 3500 Balance 1480 / 3500 300 / 3500 Weight last 48 hrs Weight 249 lb Physical Exam Narrative: EXAM NARRATIVE: Abdomen: Soft, less distended, tender Data : 01/25/21 04:20 01/25/21 04:20 Micro: Microbiology 01/25/21 14:03 Stool Lactoferrin - Final Stool Enteric Pathogens (PCR) - Final Parasite Antigen Panel - Final C.difficile Toxin B Gene (PCR) - Final Occult Blood (FIT) - Final A&P Assessment and plan (1) Small bowel obstruction: 45-year-old male with longstanding history of diarrhea has been taking Imodium daily who has had a prior right hemicolectomy. Patient has generalized abdominal pain but no evidence of peritonitis. WBC: 4.[address] abdomen pelvis performed yesterday which showed fecalization and moderate amount of stool throughout the entire colon. Abdominal x-ray today shows air within the colon, no evidence of dilated small bowel loops 1 bottle of magnesium citrate today Daily labs Pepcid for GI prophylaxis Lovenox for DVT prophylaxis Discussed with the patient that he could still have small bowel obstruction from adhesions from prior surgery. But at this point will try an aggressive bowel regimen to see if it helps relieve his symptoms. If there is no improvement in the next 48 to 72 hours he might still need a diagnostic laparoscopy, possible laparotomy. 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
[2021-01-26] MEDS: magnesium citrate Btl 296 mL PO (09:39)
--- NOTE | 2021-01-26 15:00 | PM.PN ---
Subjective Subjective: Interval history: Some cramping in his belly. Denies significant eructation. Has had some bowel movements after enema, but today his abdomen is bothering him again. He wants to continue as discussed with surgery with conservative management the moment, trying to avoid surgery given he has had some extensive surgery in the past due to complicated appendicitis with abscess, requiring resection of parts of large and small bowel. Vitals/I&O/Wt Last Vital Signs Temp 98.3 F 01/26/21 11:43 Pulse 71 01/26/21 11:43 Resp 16 01/26/21 12:37 BP 128/90 01/26/21 11:43 Pulse Ox 96 01/26/21 11:43 01/26/21 01/26/21 01/26/21 06:59 14:59 22:59 Intake Total 300 / 3500 1200 / 1200 Balance 300 / 3500 1200 / 1200 Weight last 48 hrs Weight 112.945 kg Physical Exam Const: COMMON NORMALS: no acute distress and patient oriented x3 NUTRITIONAL APPEARANCE: overweight HENMT: COMMON NORMALS: oropharynx normal Neck/C-Spine: COMMON NORMALS: no JVD Resp: COMMON NORMALS: normal respiratory effort and clear to auscultation bilaterally AUSCULTATION: clear to auscultation bilaterally Cardio: COMMON NORMALS: no JVD, regular rhythm, S1 normal heart sound present, S2 normal heart sound present and No murmurs present (Cardio) RHYTHM: regular rhythm HEART SOUNDS: S1 normal heart sound present and S2 normal heart sound present GI: COMMON NORMALS: Soft to palpation INSPECTION: Yes abdominal distension AUSCULTATION: Yes normoactive bowel sounds PALPATION: Yes Soft to palpation and Yes Tenderness to palpation present (GI) Extremity: COMMON NORMALS: no joint enlargement and no pedal edema Neuro: COMMON NORMALS: patient oriented x3 and moves all extremities Skin: COMMON NORMALS: no rashes or lesions noted GENERAL SKIN EXAM: no rashes or lesions noted Data : 01/25/21 04:20 01/25/21 04:20 Micro: Microbiology 01/25/21 14:03 Stool Lactoferrin - Final Stool Enteric Pathogens (PCR) - Final Parasite Antigen Panel - Final C.difficile Toxin B Gene (PCR) - Final Occult Blood (FIT) - Final A&P Assessment and plan (1) Small bowel obstruction: Surgical documentation appreciated. Continue conservative measurement today. Bowel rest, clear liquids as tolerating, IV hydration, pain, nausea control. Extensive surgical procedure in the past with high risk of adhesions. CT scan shows: 1. Mild fluid-filled distention of small bowel loops in the pelvis and right lower quadrant with fecalization terminal ileum. Findings likely due to small bowel enteritis including inflammatory bowel disease versus developing distal small bowel obstruction. 2. Prior postoperative changes at the ileocecal valve. 3. Mild constipation right colon. Colon is otherwise unremarkable. 4. A few reactive periaortic lymph nodes. -With history of small and large bowel resection with intra-abdominal abscess with appendectomy, etiology uncertain, but he was told for Crohn's disease Status: Acute (2) Abdominal pain: Status: Acute Attestations Medical Necessity Statement*: Continue admission for assessment management of small bowel obstruction. Coding Level of Care Code Acute Police Clerk for [facility] Diagnoses Small bowel obstruction K56.609 Abdominal pain R10.9
[2021-01-26] MEDS: albuterol 8 gm MDI 1 PUFF INHALATION ×2 (17:12→22:29)
[2021-01-26] MEDS: enoxaparin 40 mg/0.4 mL Syringe SUBCUT (18:44)
--- NOTE | 2021-01-26 23:49 | PC.NURSE ---
i reported low pulse 58 to nurse
[2021-01-27 00:09] VITALS: RESP 18
[2021-01-27] MEDS: HYDROmorphone 1 mg/mL INJ 1 mL IVP ×2 (00:09→04:03)
[2021-01-27 04:00] VITALS: BP 102/67; PULSE 48; RESP 18; TEMP 36.3; O2SAT 98
[2021-01-27 04:03] VITALS: RESP 18
[2021-01-27 05:44] LABS: Basophils % 0.7 %; Eosinophils # 0.3 10^3/uL (0.0-0.8); Hematocrit 43.2 % (42.0-52.0); Hemoglobin 13.8 g/dL (11.7-16.6); Lymphocytes # 1.3 10^3/uL (0.8-4.8); Lymphocytes % 29.2 %; Mean Corpuscular HGB Conc 31.9 g/dL (30.0-36.0); Mean Corpuscular Hemoglobin 30.5 pg (28.0-34.0); Mean Corpuscular Volume 95.6 fl (80-94); Mean Platelet Volume 10.9 fL (7.4-10.4); Monocytes # 0.4 10^3/uL (0.2-0.9); Monocytes % 9.7 %; Neutrophils # 2.31 10^3/uL (1.8-7.7); Neutrophils % 53.7 %; Nucleated Red Blood Cells % 0 %; Platelet Count 255 10^3/cmm (130-400); Red Blood Count 4.52 10^6/uL (4.1-5.3); Red Cell Distribution Width 13.2 % (12.1-15.1); White Blood Count 4.3 10^3/uL (4.0-10.0)
[2021-01-27 06:27] LABS: Alanine Aminotransferase 70 U/L (0-41); Albumin Level 3.7 g/dL (3.5-5.2); Alkaline Phosphatase 57 IU/L (40-130); Anion Gap 9.3 (5-19); Aspartate Amino Transferase 39 U/L (0-40); Blood Urea Nitrogen 4 mg/dL (6-20); Calcium 8.6 mg/dL (8.5-10.5); Carbon Dioxide 30 mmol/L (22-29); Chloride 104 mmol/L (98-107); Glomerular Filtration Rate 122.5 mL/min (90-130); Glucose 84 mg/dL (65-115); Magnesium 2.1 mg/dL (1.7-2.3); Osmolality Calculated 284 mOsm/kg (285-295); Phosphorus 3.6 mg/dL (2.5-4.5); Potassium 4.3 mmol/L (3.5-5.1); Sodium 139 mmol/L (136-145); Total Bilirubin 0.4 mg/dL (0.15-1.2); Total Protein 6.7 g/dL (6.6-8.7)
[2021-01-27 06:40] VITALS: PULSE 66; RESP 18; O2SAT 95
[2021-01-27] MEDS: albuterol 8 gm MDI 1 PUFF INHALATION (06:41)
[2021-01-27 08:00] VITALS: BP 134/90; PULSE 75; RESP 18; TEMP 36.5; O2SAT 97
[2021-01-27] MEDS: famotidine 20 mg Tablet PO (08:03)
--- NOTE | 2021-01-27 10:27 | P.DS_ITS ---
Discharge Providers Date of Admission: 01/25/21 13:01 Date of Discharge: January 27, 2021 Attending Provider at Admission: Juan Sutton MD Attending Provider at Discharge: Dandre Murray Diagnoses at Discharge Discharge Diagnosis (1) Small bowel obstruction: Status: Acute (2) Abdominal pain: Status: Acute Reason for Visit Reason for Visit: Abdominal Pain Hospital Course Hospital Course 45-year-old gentleman with extensive prior abdominal surgery, partial bowel r esection, was admitted for surgical management of small bowel obstruction which resolved with conservative management with bowel rest, nausea medication, IV hydration stool studies including lactoferrin, fecal occult blood, enteric bacterial, parasite panel and C. difficile were unremarkable. He had a bowel movement, is tolerating clear liquid diet. He is asked to hold off on Imodium which he uses due to recurrent diarrhea, consider adding fiber instead, attempt space out smaller meals through the day. He is asked to follow-up in clinic for colonoscopy. Physical Exam Narrative: EXAM NARRATIVE: Feels well. Is all dressed, and states is ready to go home. Const: COMMON NORMALS: no acute distress and patient oriented x3 HENMT: COMMON NORMALS: oropharynx normal Neck/C-Spine: COMMON NORMALS: no JVD Resp: COMMON NORMALS: normal respiratory effort and clear to auscultation bilaterally AUSCULTATION: clear to auscultation bilaterally Cardio: COMMON NORMALS: no JVD, regular rhythm, S1 normal heart sound present, S2 normal heart sound present and No murmurs present (Cardio) RHYTHM: regular rhythm HEART SOUNDS: S1 normal heart sound present and S2 normal heart sound present GI: COMMON NORMALS: Normal to inspection, nondistended, normoactive bowel sounds present, Soft to palpation and non-tender PALPATION: Yes Soft to palpation Extremity: COMMON NORMALS: no joint enlargement and no pedal edema Neuro: COMMON NORMALS: patient oriented x3 and moves all extremities Skin: COMMON NORMALS: no rashes or lesions noted GENERAL SKIN EXAM: no rashes or lesions noted Discharge Data Data Completed and Pending: Completed Studies During Hospitalization Category Date Time Status CT abdomen pelvis w con* [id number] Urge nt Cat Scan 01/24/21 12:18 Completed XR abdomen min 2V [id number] Routine Exams 01/26/21 07:50 Completed Pending at discharge Category Date Time Status Complete Blood Co unt w/Auto AM LABS Lab 01/26/21 04:00 Ordered Complete Blood Co unt w/Auto AM LABS Lab 01/28/21 04:00 Ordered Comprehensive Met abolic Panel AM LA BS Lab 01/26/21 04:00 Ordered Comprehensive Met abolic Panel AM LA BS Lab 01/28/21 04:00 Ordered Magnesium AM LABS Lab 01/26/21 04:00 Ordered Magnesium AM LABS Lab 01/28/21 04:00 Ordered Phosphorus AM LAB S Lab 01/26/21 04:00 Ordered Phosphorus AM LAB S Lab 01/28/21 04:00 Ordered Labs from last 24 hours 01/27/21 01/27/21 04:20 04:20 WBC 4.3 RBC 4.52 Hgb 13.8 Hct 43.2 MCV 95.6 H MCH 30.5 MCHC 31.9 RDW 13.2 Plt Count 255 MPV 10.9 H Neut % (Auto) 53.7 Lymph % (Auto) 29.2 [place] % (Auto) 9.7 Eos % (Auto) 6.0 Baso % (Auto) 0.7 Neut # (Auto) 2.31 Lymph # (Auto) 1.3 [place] # (Auto) 0.4 Eos # (Auto) 0.3 Baso # (Auto) 0.0 Nucleated RBC % (a uto) 0 Nucleated RBCs # 0.0 Sodium 139 Potassium 4.3 Chloride 104 Carbon Dioxide 30 H Anion Gap 9.3 BUN 4 L Creatinine 0.7 GFR Calculation 122.5 Glucose 84 Calculated Osmolal ity 284 L Calcium 8.6 Phosphorus 3.6 Magnesium 2.1 Total Bilirubin 0.4 AST 39 ALT 70 H Alkaline Phosphata se 57 Total Protein 6.7 Albumin 3.7 Globulin 3.0 Vitals: Last Vital Signs Temp 97.7 F 01/27/21 08:00 Pulse 75 01/27/21 08:00 Resp 18 01/27/21 08:00 BP 134/90 01/27/21 08:00 Pulse Ox 97 01/27/21 08:00 Discharge Plan Discharge Patient Disposition: Home Condition: Stable Prescriptions: Continued albuterol sulfate 90 mcg/actuation HFA aerosol inhaler 2 inh inhalation Q6H PRN (Reason: shortness of breath or wheezing) Qty: 8.5 RF: 0 prednisone 20 mg tablet 20 mg PO BID MDD see pharmacy comment 5 Days Qty: 10 RF: 0 Discontinued Imodium A-D 2 mg Tablet 2 mg PO Q4H PRN (Reason: Diarrhea) RF: 0 Discharge Orders: Discharge Order (Routine); Ordered 01/27/21 Ordered By: Dandre Murray Referrals: Vahe Bates MD [Physician] - 2 weeks Discharge Diet: Advance as tolerated Patient Instructions: Cigarette Smoking and Your Health (GEN), Abdominal Pain (ED), Bowel Obstruction (GEN), Opioid Safety Activity Restrictions/Additional Instructions: 1. Advance diet as tolerated 2. Restart Imodium initially with 1 tablet a day only once you start developing loose stools again. 3. Follow-up in clinic to schedule outpatient colonoscopy Consider avoiding Imodium. Add fiber to diet. Discharge Attestations Time Spent in Discharge Care*: greater than 30 min Quality Metrics Clinical Quality Measures During this hospital stay, did patient experience: None Coding Level of Care Code Acute g [facility] note Diagnoses Small bowel obstruction K56.609 Abdominal pain R10.9
[2021-01-27 11:03] VITALS: BP 134/90; PULSE 75; RESP 18; TEMP 36.5; O2SAT 97
--- NOTE | 2021-01-29 14:55 | PC.SOCIAL ---
discharge follow up call made. patient reports some pain today, but tolerating. patient advised to take imodium 1 mg daily when loose stools start. patient reports he is currently having loose stools and will start imodium. patient given follow up appointment date and time with dr. solitario. patient reports he has added fiber to his diet. no questions voiced.
== END 2021-01-27 11:03 | disposition home or self-care (01) | DRG 390 ==
LOC: ER 15:08 → MEDSURG 17:05
PROVIDERS: Admitting Provider Family Medicine; Emergency Provider Emergency Medicine; Visit Provider Internal Medicine
DX: K56.609 Unspecified intestinal obstruction, unspecified as to partial versus complete obstruction (principal); Z90.49 Acquired absence of other specified parts of digestive tract; Z87.891 Personal history of nicotine dependence; J45.909 Unspecified asthma, uncomplicated
CPT/HCPCS: 36415; 74019; 74177; 80053; 81003; 82274; 83630; 83690; 83735; 84100; 84145; 84443; 85025; 87493; 87506; 94640; 96361; 96372; 96374; 96375; 96376; 99285; G0378; J1170; J1650; J2270; J2405; J3535; J7030; Q9967

== ENCOUNTER 2021-02-19 12:51 | Emergency (ER) | payer SELFPAY ==
[2021-02-19 12:57] VITALS: BP 147/91; PULSE 92; RESP 20; TEMP 37; O2SAT 97; BMI 31.6
--- NOTE | 2021-02-19 13:20 | PC.NURSE ---
Pt requested to get a inhaler now for his SOA, pt continued to stated he was here a month ago and has been using the inhaler and it only had 200 treatments in it per pt.
--- NOTE | 2021-02-19 13:30 | PC.NURSE ---
Pt stated you cannot get a IV or blood, I always need ultrasound . Looked at right and Left AC. Notified OPAL Vargas about need for U/S IV.
--- NOTE | 2021-02-19 13:50 | ED_ITS ---
HPI - SOB/Dyspnea General: Chief Complaint: Shortness of Breath/Dyspnea Stated Complaint: DIFF BREATHING Time Seen by Provider: 02/19/21 13:34 History of Present Illness: HPI Narrative: Patient presents with flareup of his asthma. Patient actually is requesting refill on his inhaler because he is unable to get it filled due to financial constraints. Was unable to get his prednisone filled either. Patient is a smoker. Patient does not realize that possible allergies in the fall or what is causing his flareup because this is what happened last to 3 years in a fall. Patient says he gets pain tomorrow will be able to obtain medications. MD elicited complaint: asthma attack Pertinent past history: asthma Onset (ago): week(s) Context: recent illness Timing: intermittent Severity: mild Exacerbating factors: other (Allergens) Relieving factors: medication Associated symptoms: Reports no associated symptoms; Deny abdominal pain, chest pain, extremity pain, fever(s), nausea or vomiting Treatment prior to arrival: none Review of Systems Const: Denies: fever(s), chills or body aches Eyes: Denies: change in vision or blurry vision ENMT: Denies: throat pain or nasal congestion Card: Denies: chest pain or dyspnea on exertion Resp: Reports: wheezing; Denies: dyspnea, productive cough or non-productive cough GI: Denies: abdominal pain, nausea or vomiting : Denies: difficulty urinating Musc: Denies: extremity pain Skin/Breast: Denies: rash Neuro: Denies: headache(s) Psych: Denies: anxiety or depression Stuart/Lymph: Denies: easy bruising PFSH ED PFSH: Medical History (Updated 02/19/21 @ 13:55 by STAR Leonard) History of asthma Surgical History (Updated 01/24/21 @ 16:24 by Juan Sutton MD) History of bowel resection Family History (Updated 01/24/21 @ 16:24 by Juan Sutton MD) Father Diabetes Social History (Updated 01/24/21 @ 16:24 by Juan Sutton MD) Smoking and tobacco status: never smoked Alcohol intake: former Physical Exam Const: COMMON NORMALS: no acute distress, average body habitus and patient oriented x3 HENMT: COMMON NORMALS: normocephalic HEAD & SCALP: normal to inspection and normocephalic FACE & SINUS: normal facial exam Eye: COMMON NORMALS: conjunctivae normal GENERAL EYE: appearance normal, both eyes and all related structures CONJUNCTIVA: Yes conjunctivae normal Neck/C-Spine: COMMON NORMALS: no JVD Chest: COMMONS NORMALS: normal inspection of the chest Resp: COMMON NORMALS: normal respiratory effort AUSCULTATION: wheezes (Scattered) Cardio: COMMON NORMALS: no JVD, regular rate and regular rhythm RATE: regular rate RHYTHM: regular rhythm GI: COMMON NORMALS: Normal to inspection, nondistended, normoactive bowel sounds present Extremity: COMMON NORMALS: normal to inspection and full ROM Neuro: COMMON NORMALS: patient oriented x3 Course Vital Signs: Vital signs: Vital Signs Temperature 98.6 F 02/19/21 12:57 Pulse Rate 79 02/19/21 14:33 Respiratory Rate 22 H 02/19/21 14:33 Blood Pressure 145/87 02/19/21 14:33 Pulse Oximetry 94 02/19/21 14:33 MDM - SOB/Dyspnea MDM Narrative: Medical decision making narrative: Patient requesting an inhaler. Patient declines any blood work or x-ray. Patient asking for steroid inhaler. Patient states he gets paid tomorrow and will be able to refill his prescriptions. Patient continues to smoke and realizes smoking is causing problem. Patient did not realize that he has a trigger for asthma which include his smoking possible allergens from the leaves in the fall. Patient encouraged to obtain Claritin and start taking it for next couple months and to quit smoking. Patient can return to ER if he has worsening symptoms. Rx provided for albuterol and prednisone. Discharge Plan Discharge Patient Disposition: Home Clinical Impression: Seasonal allergies, Tobacco abuse Asthma with exacerbation Qualifiers: Asthma severity: mild Asthma persistence: intermittent Qualified Code(s): J45.21 - Mild intermittent asthma with (acute) exacerbation Condition: Stable Prescriptions: New Ventolin HFA 90 mcg/actuation HFA aerosol inhaler 2 inh inhalation Q6H PRN (Reason: shortness of breath or wheezing) Qty: 6.7 RF: 0 prednisone 20 mg tablet 20 mg PO DAILY Qty: 7 RF: 0 No Action albuterol sulfate 90 mcg/actuation HFA aerosol inhaler 2 inh inhalation Q6H PRN (Reason: shortness of breath or wheezing) Qty: 8.5 RF: 0 Discharge Orders: Discharge ED (Routine); Ordered 02/19/21 Ordered By: Jose Garcia Discharge Diet: Usual diet Discharge Activity: Increase activity as tolerated Patient Instructions: Asthma (ED), How to Stop Smoking (ED), Allergies (ED) Activity Restrictions/Additional Instructions: Get medications refilled when he get paid. Use medication as directed. Buy envi-ldw-oghvaiv Claritin, Ute or Zyrtec to help with allergies for next couple months. Can also use Flonase nasal spray which is shown to be very effective to help prevent most allergies. Advised to quit smoking entirely. Follow-up your family medical provider if no significant provement. Coding Level of Care Code ED Cloth Covered Helmet Puller for Ramandeep Fwd Exam Comprehensive
[2021-02-19] MEDS: methylPREDNISolone (DEPO) 80 MG/ML INJ 1 mL IM (13:52)
[2021-02-19 13:55] VITALS: BP 188/109; PULSE 78; RESP 18; O2SAT 92
[2021-02-19 14:15] VITALS: PULSE 90; RESP 16; O2SAT 94
[2021-02-19] MEDS: albuterol 8 gm MDI 2 PUFF INHALATION (14:15)
[2021-02-19 14:16] VITALS: PULSE 92
[2021-02-19 14:33] VITALS: BP 145/87; PULSE 79; RESP 22; O2SAT 94
--- NOTE | 2021-02-20 11:47 | DCPLANNER ---
[employer] manager had message to speak with patient about getting established with a primary care physician. [employer] manager called phone number [phone]. [employer] manager was unable to speak with patient at this time, a voicemail was left patient to return family service caseworker phone call.
== END 2021-02-19 14:35 | disposition home or self-care (01) ==
PROVIDERS: Emergency Provider Nurse Practitioner Family
DX: J45.21 Mild intermittent asthma with (acute) exacerbation (principal); J30.2 Other seasonal allergic rhinitis; Z72.0 Tobacco use
CPT/HCPCS: 94640; 96372; 99283; J1040; J3535

== ENCOUNTER 2021-04-01 01:06 | Emergency (ER) | payer SELFPAY ==
[2021-04-01] VITALS (7 sets, daily range): BP systolic 124–153; BP diastolic 82–121; PULSE 87–98; RESP 18–22; TEMP 36.6; O2SAT 89–94; BMI 32.3
--- NOTE | 2021-04-01 01:25 | ED_ITS ---
HPI - SOB/Dyspnea General: Chief Complaint: Shortness of Breath/Dyspnea Stated Complaint: SOB Time Seen by Provider: 04/01/21 01:24 History of Present Illness: HPI Narrative: 45-year-old male patient comes in today with worsening shortness of breath. Patient reports 3 episodes this year of similar symptoms which he has been treated with oral steroids and albuterol. Patient reports he usually does not have this many episodes yearly. Patient is concerned there may be something else going on. Patient appears well. Patient appears in no acute distress. Patient is able to form sentences without any difficulty. MD elicited complaint: shortness of breath Review of Systems General: Reports: 10 or more systems reviewed and unremarkable except in HPI and below Resp: Reports: dyspnea PFSH ED PFSH: Medical History (Updated 04/01/21 @ 01:53 by STAR Garg) History of asthma Surgical History (Updated 01/24/21 @ 16:24 by Juan Sutton MD) History of bowel resection Family History (Updated 01/24/21 @ 16:24 by Juan Sutton MD) Father Diabetes Social History (Updated 01/24/21 @ 16:24 by Juan Sutton MD) Smoking and tobacco status: never smoked Alcohol intake: former Physical Exam Const: COMMON NORMALS: no acute distress and patient oriented x3 GENERAL APPEARANCE: cooperative HENMT: COMMON NORMALS: normocephalic, TM's normal bilaterally and Normal external nose present HEAD & SCALP: normal to inspection and normocephalic NOSE: Normal external nose present TYMPANIC MEMBRANE: TM's normal bilaterally MOUTH: Normal oral and palatal mucosa present THROAT: posterior oropharynx normal Eye: GENERAL EYE: appearance normal, both eyes and all related structures Neck/C-Spine: COMMON NORMALS: full ROM Lymph: LYMPHATIC: no lymphadenopathy noted Chest: COMMONS NORMALS: normal inspection of the chest Resp: COMMON NORMALS: normal respiratory effort EFFORT & INSPECTION: Yes able to speak in complete sentences AUSCULTATION: wheezes Cardio: COMMON NORMALS: regular rate and regular rhythm RATE: regular rate RHYTHM: regular rhythm GI: COMMON NORMALS: non-tender : COMMON NORMALS: Yes no CVA tenderness BLADDER/KIDNEY EXAM: Yes no CVA tenderness Back/Pelvis: COMMON NORMALS: no CVA tenderness and thoracic and lumbar spine normal to inspection Extremity: COMMON NORMALS: normal to inspection Neuro: COMMON NORMALS: patient oriented x3 and moves all extremities Psych: COMMON NORMALS: mental status grossly normal and cooperative Skin: COMMON NORMALS: no rashes or lesions noted GENERAL SKIN EXAM: no rashes or lesions noted Course Vital Signs: Vital signs: Vital Signs Temperature 97.8 F 04/01/21 01:10 Pulse Rate 92 04/01/21 01:52 Respiratory Rate 18 04/01/21 01:49 Blood Pressure 153/121 04/01/21 01:10 Pulse Oximetry 89 L 04/01/21 01:49 MDM - SOB/Dyspnea MDM Narrative: Medical decision making narrative: Patient comes in today with complaints of shortness of breath and difficulty breathing. Patient has been without his albuterol for 2 to 3 days. Patient reports worsening symptoms since he moved to [place] from [place]. On exam patient has tight lung sounds with wheezing throughout. Vital signs are normal. Patient does have some chest wall tenderness on the left lower lung area. Differential diagnosis includes not limited to exacerbation of asthma, COPD, pneumonia, pneumothorax. Chest x-ray noted no significant abnormalities. Patient was treated for asthma exacerbation with 125 of Solu-Medrol IV, DuoNeb respiratory treatment, and albuterol inhaler. Patient be continue with albuterol and prednisone. Patient will also be written for Advair Diskus inhaler. Case management requested to assist patient with follow-up with primary care for management of his inhaler. Patient reported understanding of care plan and need for follow-up or return to the ER. Discharge Plan Discharge Patient Disposition: Home Clinical Impression: Asthma with exacerbation Qualifiers: Asthma severity: moderate Asthma persistence: persistent Qualified Code(s): J45.41 - Moderate persistent asthma with (acute) exacerbation Condition: Stable Prescriptions: New fluticasone propion-salmeterol 250-50 mcg/dose blister with device 1 inh inhalation BID Qty: 60 RF: 2 prednisone 20 mg tablet 20 mg PO BID 7 Days Qty: 14 RF: 0 Ventolin HFA 90 mcg/actuation HFA aerosol inhaler 2 inh inhalation Q4H PRN (Reason: shortness of breath or wheezing) Qty: 8.5 RF: 2 Discontinued albuterol sulfate 90 mcg/actuation HFA aerosol inhaler 2 inh inhalation Q6H PRN (Reason: shortness of breath or wheezing) Qty: 8.5 RF: 0 albuterol sulfate [Ventolin HFA] 90 mcg/actuation HFA aerosol inhaler 2 inh inhalation Q6H PRN (Reason: shortness of breath or wheezing) Qty: 6.7 RF: 0 prednisone 20 mg tablet 20 mg PO DAILY Qty: 7 RF: 0 Discharge Orders: Discharge ED (Routine); Ordered 04/01/21 Ordered By: Adrian Barraza Discharge Diet: Usual diet Discharge Activity: Increase activity as tolerated Patient Instructions: Asthma (ED) Activity Restrictions/Additional Instructions: Take medications as prescribed. Go to the [facility] pharmacy in the morning and you can have your prescriptions charged to your emergency room bill this needs to be done within the next day. Follow-up with primary care for further management of your asthma. Return to the ER for worsening symptoms or new concerns. Coding Level of Care Code ED Flume Maker for Ramandeep Cleaning Exam Comprehensive
[2021-04-01] MEDS: ipratropium-albuterol 3 mL Neb INHALATION (01:30)
--- NOTE | 2021-04-01 01:30 | XRR_ITS ---
PROCEDURE INFORMATION: Exam: XR Chest Exam date and time: 04/01/2021 1:30 AM Age: 45 years old Clinical indication: Pain; On breathing; Additional info: Short of breath, wheezing TECHNIQUE: Imaging protocol: XR of the chest. Views: 2 views. COMPARISON: CR XR chest 1V portable [id number] 01/21/2021 10:46 AM FINDINGS: Lungs: Continued slight bronchial wall thickening. Lung volumes within normal limits. Still no consolidation or haziness in the lungs. Pleural spaces: No pneumothorax or pleural fluid. Heart/Mediastinum: Still no cardiomegaly. Continued possible subtle mass effect on the right side of the cervicothoracic trachea. No tracheal narrowing. Diaphragm: Flattening of the hemidiaphragms. Bones/joints: Old slight compression fractures. Narrowing of a few discs. Old right rib fracture more visible than before. Old left clavicular shaft fracture still present. XR/XR chest 2V* [id number] IMPRESSION: No acute findings. Multiple chronic abnormalities detailed above.
[2021-04-01] MEDS: albuterol 8 gm MDI 2 PUFF INHALATION (01:44)
[2021-04-01] MEDS: sodium chloride 0.9% 1,000 ML 999 ML IV (02:22)
--- NOTE | 2021-04-08 15:04 | PC.SOCIAL ---
Addendum entered by Leigha Wesley RN 04/09/21 08:29: 04/09/21 attempted to call patient again and no answer. No return call received from message left yesterday. Original Note: left message with family member regarding the referral from ED to set up with a pcp. Family member will provide this nurse name and number to patient to return my call.
== END 2021-04-01 03:02 | disposition home or self-care (01) ==
PROVIDERS: Emergency Provider Nurse Practitioner Family
DX: J45.41 Moderate persistent asthma with (acute) exacerbation (principal)
CPT/HCPCS: 71046; 94640; 96361; 96374; 99284; J2930; J3535; J7030

== ENCOUNTER 2021-06-22 10:04 | Emergency (ER) | payer SELFPAY ==
[2021-06-22 10:23] VITALS: BP 151/89; PULSE 99; RESP 20; TEMP 36.6; O2SAT 95; BMI 30.9
[2021-06-22] MEDS: dexamethasone 10 mg/mL INJ IM (10:33)
[2021-06-22 10:35] VITALS: BP 151/89; PULSE 72; RESP 20; TEMP 36.6; O2SAT 95
--- NOTE | 2021-06-22 10:35 | W.ED.SOB ---
HPI - SOB/Dyspnea General: Chief Complaint: Shortness of Breath/Dyspnea Stated Complaint: SOB Time Seen by Provider: 06/22/21 10:10 Source: patient Mode of arrival: ambulatory Limitations: no limitations History of Present Illness: HPI Narrative: 45-year-old male has a history of asthma he states that he ran out of his albuterol inhaler 2 days ago. He states he has had increased wheezing since then he has a new PCP and is not getting into them for a week or so. He denies any chest pain he has some mild wheezing here no severe distress. Associated symptoms: Deny abdominal pain, chest pain, fever(s), nausea or vomiting Review of Systems Const: Denies: fever(s), chills, body aches or change in appetite Eyes: Denies: blurry vision or eye discomfort ENMT: Denies: throat pain or dental pain Card: Denies: chest pain Resp: Reports: dyspnea and wheezing GI: Denies: abdominal pain, nausea, vomiting or diarrhea : Denies: dysuria Musc: Denies: neck pain or back pain Skin/Breast: Denies: rash Neuro: Denies: headache(s) Psych: Denies: depression Stuart/Lymph: Denies: easy bruising All/Imm: Denies: urticaria PFSH ED PFSH: Medical History (Updated 06/22/21 @ 10:37 by Evonne Frias MD) History of asthma Surgical History (Updated 01/24/21 @ 16:24 by Juan Sutton MD) History of bowel resection Family History (Updated 01/24/21 @ 16:24 by Juan Sutton MD) Father Diabetes Social History (Updated 01/24/21 @ 16:24 by Juan Sutton MD) Smoking and tobacco status: never smoked Alcohol intake: former Physical Exam Const: COMMON NORMALS: no acute distress, patient oriented x3 and healthy appearing HENMT: COMMON NORMALS: normocephalic and atraumatic HEAD & SCALP: normocephalic and atraumatic Eye: COMMON NORMALS: Equal, round and reactive pupils present and EOMs intact bilaterally PUPIL: Yes Equal, round and reactive pupils present Neck/C-Spine: COMMON NORMALS: full ROM and supple Chest: COMMONS NORMALS: normal inspection of the chest and normal palpation of entire chest wall Resp: COMMON NORMALS: normal respiratory effort, No retractions and No use of accessory muscles AUSCULTATION: wheezes Cardio: COMMON NORMALS: regular rate, regular rhythm and No murmurs present (Cardio) RATE: regular rate RHYTHM: regular rhythm GI: COMMON NORMALS: Normal to inspection, nondistended, normoactive bowel sounds present, Soft to palpation, non-tender and no masses PALPATION: Yes Soft to palpation Extremity: COMMON NORMALS: normal to inspection and full ROM Neuro: COMMON NORMALS: patient oriented x3, moves all extremities and no focal motor deficits Psych: COMMON NORMALS: mental status grossly normal, Normal thought process present and cooperative THOUGHT PROCESS: Normal thought process present Skin: COMMON NORMALS: no rashes or lesions noted and no wounds GENERAL SKIN EXAM: no rashes or lesions noted Course Vital Signs: Vital signs: Vital Signs Temperature 98 F 06/22/21 10:35 Pulse Rate 72 06/22/21 10:35 Respiratory Rate 20 H 06/22/21 10:35 Blood Pressure 151/89 06/22/21 10:35 Pulse Oximetry 95 06/22/21 10:35 MDM - SOB/Dyspnea Medical Decision Making Patient presents with asthma exacerbation he has been out of his inhaler we will refill his inhaler did give him a Decadron here he feels much improved here after breathing treatment. Discharge Plan Discharge Patient Disposition: Home Clinical Impression: Asthma with exacerbation Condition: Stable Prescriptions: Continued Ventolin HFA 90 mcg/actuation HFA aerosol inhaler 2 inh inhalation Q4H PRN (Reason: shortness of breath or wheezing) Qty: 8.5 2RF No Action fluticasone propion-salmeterol 250-50 mcg/dose blister with device 1 inh inhalation BID Qty: 60 2RF Discharge Orders: Discharge ED (Routine); Ordered 06/22/21 Ordered By: Evonne Frias Discharge Diet: Advance as tolerated Discharge Activity: Resume usual activity Patient Instructions: Asthma (ED) Coding Level of Care Code ED Confectionery Drops Machine Operator for Chg Fwd Exam Comprehensive
[2021-06-22 10:44] VITALS: PULSE 79; RESP 20; O2SAT 97
[2021-06-22] MEDS: albuterol 8 gm MDI 2 PUFF INHALATION (10:44)
[2021-06-22] MEDS: ipratropium-albuterol 3 mL Neb INHALATION (10:44)
[2021-06-22 10:51] VITALS: PULSE 79; RESP 20; O2SAT 97
== END 2021-06-22 10:55 | disposition home or self-care (01) ==
PROVIDERS: Emergency Provider Emergency Medicine
DX: J45.901 Unspecified asthma with (acute) exacerbation (principal)
CPT/HCPCS: 94640; 96372; 99283; J1100; J3535

== ENCOUNTER 2021-07-18 10:06 | Emergency (ER) | payer SELFPAY ==
[2021-07-18 10:11] VITALS: BP 157/83; PULSE 103; RESP 20; TEMP 37.1; O2SAT 93; BMI 31.6
[2021-07-18 10:14] VITALS: PULSE 100; RESP 22; TEMP 37.9; O2SAT 93
--- NOTE | 2021-07-18 10:40 | PC.PHAR ---
pt states he takes care of his own medications-pt states he no longer has the advair 250-50 inhaler ext med history shows last filled 04/01/21-pt states he only uses the ventolin inhaler-pt states he takes no other medications-pt had tylenol as a previous allergy pt states he is not allergic to that pt states he has no allergies
--- NOTE | 2021-07-18 10:42 | XR_ITS ---
WS: [id number] Exam: XR chest 1V portable [id number] Date/Time of Exam: 07/18/2021 10:55 AM Reason For Exam: sob Comparison 04/01/2021. Findings: The lungs are clear and fully expanded. Costophrenic angles are sharp. No infiltrates. Bronchovascula r relief appears normal. Cardiac silhouette is unremarkable. Bony elements are intact. XR/XR chest 1V portable [id number] IMPRESSION: Unremarkable chest radiograph.
--- NOTE | 2021-07-18 10:43 | ED_ITS ---
HPI - SOB/Dyspnea General: Chief Complaint: Shortness of Breath/Dyspnea Stated Complaint: Diffculty breathing, fevor Time Seen by Provider: 07/18/21 10:15 History of Present Illness: HPI Narrative: Patient comes in with cold symptoms that started yesterday including cough, fever, headache, body aches, generalized weakness. States his significant other was sick recently with the same symptoms. Denies any Covid exposure. States he has been vaccinated for Covid. Associated symptoms: Reports fever(s); Deny abdominal pain, chest pain, nausea, palpitations, polyuria or vomiting Review of Systems Const: Reports: fever(s), body aches and fatigue Eyes: Denies: change in vision or blurry vision ENMT: Denies: throat pain or odynophagia Card: Denies: chest pain or palpitations Resp: Reports: dyspnea; Denies: productive cough GI: Denies: abdominal pain, nausea or vomiting : Denies: flank pain or dysuria Musc: Denies: neck pain or back pain Skin/Breast: Denies: rash or pruritus Neuro: Reports: headache(s); Denies: numbness in extremities Psych: Denies: anxiety or change in appetite Endo: Denies: polyuria or excessive sweating PFSH ED PFSH: Medical History (Updated 07/18/21 @ 12:12 by Neal Rodriguez MD) History of asthma Surgical History (Updated 01/24/21 @ 16:24 by Juan Sutton MD) History of bowel resection Family History (Updated 01/24/21 @ 16:24 by Juan Sutton MD) Father Diabetes Social History (Updated 01/24/21 @ 16:24 by Juan Sutton MD) Smoking and tobacco status: never smoked Alcohol intake: former Physical Exam Const: COMMON NORMALS: patient oriented x3, healthy appearing and alert HENMT: COMMON NORMALS: normocephalic and atraumatic HEAD & SCALP: normocephalic and atraumatic MOUTH: other (Dry mucous membranes) Eye: COMMON NORMALS: Equal, round and reactive pupils present and EOMs intact bilaterally CONJUNCTIVA: Yes other (Bilateral glassy eyed appearance) PUPIL: Yes Equal, round and reactive pupils present Neck/C-Spine: COMMON NORMALS: full ROM and supple Resp: COMMON NORMALS: normal respiratory effort, No retractions and No use of accessory muscles Cardio: COMMON NORMALS: regular rate and regular rhythm RATE: regular rate RHYTHM: regular rhythm GI: COMMON NORMALS: Normal to inspection, nondistended, normoactive bowel sounds present, Soft to palpation and non-tender PALPATION: Yes Soft to palpation Back/Pelvis: COMMON NORMALS: thoracic and lumbar spine normal to inspection and no thoracic nor lumbar tenderness Extremity: COMMON NORMALS: normal to inspection and full ROM Neuro: COMMON NORMALS: patient oriented x3 SENSORIUM/ORIENTATION: Yes alert Psych: COMMON NORMALS: mental status grossly normal and cooperative Skin: COMMON NORMALS: no rashes or lesions noted and no wounds GENERAL SKIN EXAM: no rashes or lesions noted Course Vital Signs: Vital signs: Vital Signs Temperature 100.3 F H 07/18/21 10:14 Pulse Rate 102 H 07/18/21 12:09 Respiratory Rate 16 07/18/21 12:09 Blood Pressure 157/83 07/18/21 10:11 Pulse Oximetry 95 07/18/21 12:09 MDM - SOB/Dyspnea Medical Decision Making Patient comes in with cold symptoms that started yesterday including cough, fever, headache, body aches, generalized weakness. States his significant other was sick recently with the same symptoms. Denies any Covid exposure. States he has been vaccinated for Covid. On physical exam he has bilateral glassy appearance, dry mucous membranes, lungs are clear to auscultation. Will check labs, flu swab, x-ray, give IV fluids, and reassess. On reassessment I talked to the pt about the test results. Will discharge home at this time with precautions to return for worsening or changing symptoms. Lab Data : 07/18/21 10:55 07/18/21 10:55 Labs/Radiology: Radiology Impressions Chest X-Ray 07/18/21 10:42 IMPRESSION: Unremarkable chest radiograph. Laboratory Results WBC 5.7 10^3/uL (4.0-10.0) 07/18/21 10:55 RBC 5.25 10^6/uL (4.1-5.3) 07/18/21 10:55 Hgb 15.5 g/dL (11.7-16.6) 07/18/21 10:55 Hct 48.4 % (42.0-52.0) 07/18/21 10:55 MCV 92.2 fl (80-94) 07/18/21 10:55 MCH 29.5 pg (28.0-34.0) 07/18/21 10:55 MCHC 32.0 g/dL (30.0-36.0) 07/18/21 10:55 RDW 13.1 % (12.1-15.1) 07/18/21 10:55 Plt Count 205 10^3/cmm (130-400) 07/18/21 10:55 MPV 11.4 fL (7.4-10.4) H 07/18/21 10:55 Neut % (Auto) 85.3 % 07/18/21 10:55 Lymph % (Auto) 4.0 % 07/18/21 10:55 [place] % (Auto) 7.8 % 07/18/21 10:55 Eos % (Auto) 1.7 % 07/18/21 10:55 Baso % (Auto) 0.9 % 07/18/21 10:55 Neut # (Auto) 4.89 10^3/uL (1.8-7.7) 07/18/21 10:55 Lymph # (Auto) 0.2 10^3/uL (0.8-4.8) L 07/18/21 10:55 [place] # (Auto) 0.5 10^3/uL (0.2-0.9) 07/18/21 10:55 Eos # (Auto) 0.1 10^3/uL (0.0-0.8) 07/18/21 10:55 Baso # (Auto) 0.1 10^3/uL (0.0-0.1) 07/18/21 10:55 Nucleated RBC % (auto) 0 % 07/18/21 10:55 Nucleated RBCs # 0.0 /100WBC 07/18/21 10:55 Sodium 134 mmol/L (136-145) L 07/18/21 10:55 Potassium 4.4 mmol/L (3.5-5.1) 07/18/21 10:55 Chloride 103 mmol/L (98-107) 07/18/21 10:55 Carbon Dioxide 19 mmol/L (22-29) L 07/18/21 10:55 Anion Gap 16.4 (5-19) 07/18/21 10:55 BUN 13 mg/dL (6-20) 07/18/21 10:55 Creatinine 0.8 mg/dL (0.7-1.2) 07/18/21 10:55 GFR Calculation 105.0 mL/min (90-130) 07/18/21 10:55 Glucose 85 mg/dL (65-115) 07/18/21 10:55 Calculated Osmolality 277 mOsm/kg (285-295) L 07/18/21 10:55 Calcium 9.5 mg/dL (8.5-10.5) 07/18/21 10:55 Total Bilirubin 0.3 mg/dL (0.15-1.2) 07/18/21 10:55 AST 38 U/L (0-40) 07/18/21 10:55 ALT 64 U/L (0-41) H 07/18/21 10:55 Alkaline Phosphatase 74 IU/L (40-130) 07/18/21 10:55 Total Protein 7.5 g/dL (6.6-8.7) 07/18/21 10:55 Albumin 4.1 g/dL (3.5-5.2) 07/18/21 10:55 Globulin 3.4 g/dL (1.3-4.6) 07/18/21 10:55 Influenza Type A Ag Positive (Negative) H 07/18/21 10:55 Influenza Type B Ag Negative (Negative) 07/18/21 10:55 Discharge Plan Discharge Patient Disposition: Home Clinical Impression: Influenza A Condition: Stable Prescriptions: No Action albuterol sulfate [Ventolin HFA] 90 mcg/actuation HFA aerosol inhaler 2 inh inhalation Q4H PRN (Reason: shortness of breath or wheezing) Qty: 8.5 2RF Discharge Orders: Discharge ED (Routine); Ordered 07/18/21 Ordered By: Neal Rodriguez Coding Level of Care 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
[2021-07-18 10:44] VITALS: BP 140/70; PULSE 95; RESP 20; TEMP 37.8; O2SAT 96
[2021-07-18 11:06] LABS: Basophils # 0.1 10^3/uL (0.0-0.1); Basophils % 0.9 %; Eosinophils # 0.1 10^3/uL (0.0-0.8); Eosinophils % 1.7 %; Hematocrit 48.4 % (42.0-52.0); Hemoglobin 15.5 g/dL (11.7-16.6); Lymphocytes # 0.2 10^3/uL (0.8-4.8); Mean Corpuscular Hemoglobin 29.5 pg (28.0-34.0); Mean Corpuscular Volume 92.2 fl (80-94); Mean Platelet Volume 11.4 fL (7.4-10.4); Monocytes # 0.5 10^3/uL (0.2-0.9); Monocytes % 7.8 %; Neutrophils # 4.89 10^3/uL (1.8-7.7); Neutrophils % 85.3 %; Nucleated Red Blood Cells % 0 %; Platelet Count 205 10^3/cmm (130-400); Red Blood Count 5.25 10^6/uL (4.1-5.3); Red Cell Distribution Width 13.1 % (12.1-15.1); White Blood Count 5.7 10^3/uL (4.0-10.0)
[2021-07-18] MEDS: sodium chloride 0.9% 1,000 ML 999 ML IV (11:06)
[2021-07-18] MEDS: ketorolac 30 mg/mL INJ IVP (11:06)
[2021-07-18 11:27] LABS: Alanine Aminotransferase 64 U/L (0-41); Albumin Level 4.1 g/dL (3.5-5.2); Alkaline Phosphatase 74 IU/L (40-130); Aspartate Amino Transferase 38 U/L (0-40); Blood Urea Nitrogen 13 mg/dL (6-20); Calcium 9.5 mg/dL (8.5-10.5); Carbon Dioxide 19 mmol/L (22-29); Chloride 103 mmol/L (98-107); Creatinine Clr Calc Pharmacy 152.4747; Globulin 3.4 g/dL (1.3-4.6); Glucose 85 mg/dL (65-115); Osmolality Calculated 277 mOsm/kg (285-295); Sodium 134 mmol/L (136-145); Total Bilirubin 0.3 mg/dL (0.15-1.2); Total Protein 7.5 g/dL (6.6-8.7)
[2021-07-18 11:30] LABS: Anion Gap 16.4 (5-19); Potassium 4.4 mmol/L (3.5-5.1)
[2021-07-18 11:44] VITALS: BP 126/69; PULSE 96; RESP 18; O2SAT 95
[2021-07-18 11:46] LABS: Influenza A by IFA Positive (Negative); Influenza B by IFA Negative (Negative)
[2021-07-18 12:09] VITALS: PULSE 102; RESP 16; O2SAT 95
[2021-07-18 12:14] VITALS: PULSE 96; RESP 16; O2SAT 95
== END 2021-07-18 12:40 | disposition home or self-care (01) ==
PROVIDERS: Emergency Provider Emergency Medicine
DX: J10.1 Influenza due to other identified influenza virus with other respiratory manifestations (principal)
CPT/HCPCS: 71045; 80053; 85025; 87804; 94640; 96361; 96374; 99284; J1885; J7030; J7611

== ENCOUNTER 2021-10-22 07:12 | Emergency (ER) | payer SELFPAY ==
--- NOTE | 2021-10-22 07:28 | XR_ITS ---
WS: [id number] Portable AP upright chest, 10/22/2021 Clinical Data: R rib/chest pain Comparison: Portable chest, 07/18/2021. Findings: No nodules, masses or effusions are seen. The heart is normal. The pulmonary vascularity is not increased. No pneumonia or pneumothorax is seen. XR/XR chest 1V portable [id number] Impression: Negative chest.
[2021-10-22 07:30] VITALS: BP 154/95; PULSE 85; RESP 16; O2SAT 96; BMI 31.6
[2021-10-22 07:33] VITALS: PULSE 99; O2SAT 98
--- NOTE | 2021-10-22 08:05 | W.ED.CHESTPA ---
HPI - Chest Pain General: Chief Complaint: Shortness of Breath/Dyspnea Stated Complaint: right rib pain Time Seen by Provider: 10/22/21 07:14 Source: patient Mode of arrival: ambulatory Limitations: no limitations History of Present Illness: Patient is a 46-year-old male who presents to ED today with a complaint of right-sided chest and rib pain. He states approximately 3 weeks ago he was carrying heavy double [place] doors and states the day after he felt like he had strained something in the right side of his chest. He states this pain continued over the past 3 weeks however was gradually improving and states he got to the point where he was almost completely asymptomatic. He states this morning he had an incident where he turned and coughed at the same time and immediately noticed significant pain to the right side of his chest in the same place where he was previously hurting. Pain is worse with deep inhalation and movement/rotation of the chest. He states he does not feel short of breath. He does have a history of asthma and does cough secondary to that. Is not running fevers. He has no chest pains apart from localized pain to the right ribs. Denies back or abdominal pains. MD complaint: chest pain Onset (ago): week(s) Prior episodes: No Pain location: right chest Pain radiation: none Severity: severe Quality: sharp Relieving factors: remaining still Exacerbating factors: inspiration and movement Associated symptoms: Reports no associated symptoms; Deny abdominal pain, dyspnea, fever(s), palpitations or syncope Treatment prior to arrival: none Risk Factors: Thoracic aortic dissection risk factors: none Review of Systems Const: Denies: fever(s), chills, body aches, fatigue or malaise Card: Reports: chest pain; Denies: palpitations, irregular heart rhythm, edema, swelling of feet/ankles, lightheadedness, syncope, pre-syncope, dyspnea on exertion, orthopnea, leg pain with exertion or acrocyanosis Resp: Reports: pain on inspiration; Denies: dyspnea, wheezing, stridor, hemoptysis or chest congestion GI: Denies: abdominal pain : Denies: flank pain, dysuria or hematuria Musc: Denies: neck pain, back pain, extremity pain or joint pain Skin/Breast: Denies: rash Neuro: Denies: headache(s), numbness in extremities, weakness in extremities or sensory changes PFSH ED PFSH: Medical History History of asthma Surgical History History of bowel resection Family History Father Diabetes Social History Smoking and tobacco status: never smoked Alcohol intake: former Physical Exam Const: COMMON NORMALS: patient oriented x3, no limitations and alert GENERAL APPEARANCE: cooperative and in distress (at times-ita after coughing-pt will have significant R rib pain) NUTRITIONAL APPEARANCE: overweight ORIENTATION/CONSCIOUSNESS: Yes awake, Yes oriented to person, Yes oriented to place and Yes oriented to time HENMT: COMMON NORMALS: normocephalic and atraumatic HEAD & SCALP: normal to inspection, normocephalic and atraumatic Chest: COMMONS NORMALS: normal inspection of the chest Chest images (male): 1. TTP R anterior lower chest wall; no abdominal pain; pain is reproducible with palpation, patient coughing, and movement/rotation of his chest wall Resp: COMMON NORMALS: normal respiratory effort and clear to auscultation bilaterally AUSCULTATION: clear to auscultation bilaterally Cardio: COMMON NORMALS: regular rate and regular rhythm RATE: regular rate RHYTHM: regular rhythm GI: COMMON NORMALS: Normal to inspection, nondistended, normoactive bowel sounds present, Soft to palpation, non-tender, No hepatosplenomegaly present and no masses PALPATION: Yes Soft to palpation and Yes No hepatosplenomegaly present : COMMON NORMALS: Yes no CVA tenderness BLADDER/KIDNEY EXAM: Yes no CVA tenderness Back/Pelvis: COMMON NORMALS: no CVA tenderness, thoracic and lumbar spine normal to inspection, no thoracic nor lumbar tenderness and thoraco-lumbar ROM normal Extremity: COMMON NORMALS: normal to inspection and full ROM GENERAL: Yes normal exam except as noted Neuro: COMMON NORMALS: patient oriented x3, moves all extremities, no focal motor deficits and no sensory deficits noted SENSORIUM/ORIENTATION: Yes alert, Yes oriented to person, Yes oriented to place and Yes oriented to time Skin: COMMON NORMALS: no rashes or lesions noted GENERAL SKIN EXAM: no rashes or lesions noted Course Vital Signs: Vital signs: Vital Signs Pulse Rate 85 10/22/21 07:30 Respiratory Rate 16 10/22/21 07:30 Blood Pressure 154/95 10/22/21 07:30 Pulse Oximetry 96 10/22/21 07:30 MDM - Chest Pain Medical Decision Making Patient's history and physical examination is consistent for musculoskeletal strain/tear of his right chest wall. His CXR is normal. At this point I do not have any suspicion for dissection, aneurysm, PE, pneumothorax, or any other emergent etiologies for his right chest discomfort. Patient will be treated with anti-inflammatories lidocaine patches and pain medications. States he is coughing secondary to asthma-will place him on some steroids and he is also asking for refill of his albuterol inhaler. Strict return to ED precautions verbally given to patient who voiced understanding. Also discussed alternating ice/heat. Lab Data Radiology Impressions Chest X-Ray 10/22/21 07:28 Impression: Negative chest. Discharge Plan Discharge Patient Disposition: Home Clinical Impression: Muscle strain of anterior chest wall Condition: Stable Prescriptions: New prednisone 10 mg tablet 60 mg PO DAILY 5 Days Qty: 30 0RF hydrocodone-acetaminophen 5-325 mg tablet 1 tab PO Q6H PRN (Reason: pain) Qty: 14 0RF diclofenac sodium 50 mg tablet,delayed release (DR/EC) 50 mg PO Q12H PRN (Reason: pain) Qty: 20 0RF lidocaine 5 % adhesive patch,medicated 1 patch topical DAILY Qty: 15 0RF Rx Instructions: leave on most painful area for up to 12 hrs Continued Ventolin HFA 90 mcg/actuation HFA aerosol inhaler 2 inh inhalation Q4H PRN (Reason: shortness of breath or wheezing) Qty: 8.5 1RF Discharge Orders: Discharge ED (Routine); Ordered 10/22/21 Ordered By: Kimberly Singletary 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
[2021-10-22] MEDS: ketorolac 60 mg/2 mL INJ IM (08:29)
[2021-10-22] MEDS: orphenadrine 30 mg/mL Inj 2 mL 60 MG IM (08:29)
[2021-10-22] MEDS: morphine 4 mg/mL SDV 1 mL IM (08:29)
[2021-10-22 08:33] VITALS: PULSE 97; O2SAT 96
[2021-10-22 08:52] VITALS: BP 155/88; PULSE 96; O2SAT 99
== END 2021-10-22 08:50 | disposition home or self-care (01) ==
PROVIDERS: Emergency Provider Physician Assistant
DX: S29.011A Strain of muscle and tendon of front wall of thorax, initial encounter (principal); X50.0XXA Overexertion from strenuous movement or load, initial encounter
CPT/HCPCS: 71045; 96372; 99284; J1885; J2270; J2360

== ENCOUNTER 2022-03-09 05:50 | Emergency (ER) | payer SELFPAY ==
[2022-03-09 05:59] VITALS: BP 151/95; PULSE 107; RESP 17; TEMP 36.7; O2SAT 97; BMI 31.8
--- NOTE | 2022-03-09 06:18 | XRR_ITS ---
PROCEDURE INFORMATION: Exam: XR Right Ribs with PA Chest Exam date and time: 03/09/2022 7:39 AM Age: 46 years old Clinical indication: Injury or trauma; Fall; Rib area; Blunt trauma (contusions or hematomas); Additional info: Fall rib pain TECHNIQUE: Imaging protocol: Radiologic exam of the Right ribs with PA chest. Views: 3 views COMPARISON: CR XR chest 1V portable [id number] 10/22/2021 7:34 AM FINDINGS: Lungs: No significant or acute findings. No consolidation. Pleural spaces: No significant costophrenic angle blunting. No pneumothorax. Heart/Mediastinum: Heart size is normal. Bones/joints: Age-indeterminate subtle nondisplaced posterolateral right 5th rib fracture and recent or healing anterolateral right 6th rib fracture with callus formation. Redemonstrated old left clavicle fracture with residual deformity. XR/XR ribs RT mn 3V w CXR1V [id number] IMPRESSION: Age-indeterminate subtle nondisplaced posterolateral right 5th rib fracture and recent or healing anterolateral right 6th rib fracture with callus formation.
[2022-03-09 06:35] VITALS: RESP 20
[2022-03-09] MEDS: morphine 4 mg/mL SDV 1 mL IVP (06:35)
[2022-03-09] MEDS: ondansetron 2 mg/ML SDV 2 mL 4 MG IVP (06:37)
--- NOTE | 2022-03-09 07:03 | W.ED.FALL ---
HPI - Fall General: Chief Complaint: Fall Stated Complaint: fall, right rib pain Time Seen by Provider: 03/09/22 06:15 Source: patient Mode of arrival: ambulatory History of Present Illness: 46-year-old male presents emergency room he slipped on some ice while going down the stairs out of his home fell landed on his right lower ribs. He has history of asthma and he feels like he is wheezing quite a bit he also evidently landed on his thigh he had an albuterol inhaler in his pocket which he evidently crushed when he landed. Did not strike his head there is no loss consciousness. He can breathe but is severe pain with palpation or deep inspiration in the right lower ribs. MD complaint: fall Onset (ago): minute(s) Fall from: standing Place fall occurred: home Loss of consciousness: None Prolonged down time: no Context: tripped/slipped Location of injury: chest Severity: moderate Quality: sharp Associated symptoms-after fall: Reports chest pain; Denies abdominal pain, confusion, difficulty walking, headache(s), hematuria, lightheadedness, neck pain, numbness, short of breath, vertigo or weakness Review of Systems Const: Denies: fever(s), chills, body aches, change in appetite, fatigue or malaise ENMT: Denies: throat pain, ear or mastoid pain, nasal discharge or nasal congestion Card: Reports: chest pain; Denies: palpitations, irregular heart rhythm or lightheadedness Resp: Denies: dyspnea, productive cough or non-productive cough GI: Denies: abdominal pain, nausea, vomiting or diarrhea : Denies: flank pain, difficulty urinating, dysuria, urinary frequency, urinary urgency or hematuria Musc: Denies: neck pain or back pain Skin/Breast: Denies: rash or pruritus Neuro: Denies: headache(s), difficulty walking, vertigo or confusion PFSH ED PFSH: Medical History History of asthma Surgical History History of bowel resection Family History Father Diabetes Social History (Reviewed 11/21/22 @ 13:02 by TEDDY Flores Smoking and tobacco status: never smoked Alcohol intake: former Physical Exam Const: COMMON NORMALS: no acute distress GENERAL APPEARANCE: cooperative and comfortable ORIENTATION/CONSCIOUSNESS: Yes awake, Yes oriented to person, Yes oriented to place and Yes oriented to time HENMT: COMMON NORMALS: normocephalic, atraumatic and hearing grossly normal bilaterally HEAD & SCALP: normocephalic and atraumatic Chest: OTHER: Right chest wall tenderness pain with palpation no subcutaneous air no crepitus Resp: COMMON NORMALS: normal respiratory effort, No retractions, No use of accessory muscles and clear to auscultation bilaterally AUSCULTATION: clear to auscultation bilaterally Cardio: COMMON NORMALS: regular rate, regular rhythm and No murmurs present (Cardio) RATE: regular rate RHYTHM: regular rhythm GI: COMMON NORMALS: Soft to palpation and No hepatosplenomegaly present AUSCULTATION: Yes normoactive bowel sounds PALPATION: Yes Soft to palpation, No Tenderness to palpation present (GI), No Guarding due to palpation present (GI) and Yes No hepatosplenomegaly present Extremity: COMMON NORMALS: normal to inspection, capillary refill normal, no clubbing, cyanosis or edema, no calf tenderness and no pedal edema Neuro: SENSORIUM/ORIENTATION: Yes oriented to person, Yes oriented to place and Yes oriented to time Skin: COMMON NORMALS: no rashes or lesions noted GENERAL SKIN EXAM: no rashes or lesions noted Course Vital Signs: Vital signs: Vital Signs Temperature 98.0 F 03/09/22 05:59 Pulse Rate 88 03/09/22 07:25 Respiratory Rate 18 03/09/22 07:25 Blood Pressure 151/95 03/09/22 05:59 Pulse Oximetry 93 03/09/22 07:25 Oxygen Delivery Me thod 03/09/22 05:59 MDM - Fall Medical Decision Making Imaging reviewed acute fracture. Discharge home with pain medications ice as needed follow-up with primary care Medical Records I reviewed the patient's medical records. Lab Data I reviewed the patient's lab results. Radiology Impressions Ribs X-Ray 03/09/22 06:18 IMPRESSION: Age-indeterminate subtle nondisplaced posterolateral right 5th rib fracture and recent or healing anterolateral right 6th rib fracture with callus formation. Discharge Plan Discharge Patient Disposition: Home Clinical Impression: Closed fracture of rib of right side, Asthma Condition: Stable Prescriptions: New tramadol 50 mg tablet 50 mg PO Q6H PRN (Reason: pain) Qty: 20 0RF albuterol sulfate 90 mcg/actuation HFA aerosol inhaler 2 inh INHALATION Q4H PRN (Reason: shortness of breath or wheezing) Qty: 18 0RF Discontinued hydrocodone-acetaminophen 5-325 mg tablet 1 tab PO Q6H PRN (Reason: pain) Qty: 14 0RF No Action diclofenac sodium 50 mg tablet,delayed release (DR/EC) 50 mg PO Q12H PRN (Reason: pain) Qty: 20 0RF lidocaine 5 % adhesive patch,medicated 1 patch topical DAILY Qty: 15 0RF Rx Instructions: leave on most painful area for up to 12 hrs Ventolin HFA 90 mcg/actuation HFA aerosol inhaler 2 inh inhalation Q4H PRN (Reason: shortness of breath or wheezing) Qty: 8.5 1RF Discharge Orders: Discharge ED (Routine); Ordered 03/09/22 Ordered By: Prabhjot Cavanaugh Patient Instructions: Opioid Safety, Pain Management Activity Restrictions/Additional Instructions: Follow-up with your primary care doctor as needed for pain medications. 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
[2022-03-09 07:25] VITALS: PULSE 88; RESP 18; O2SAT 93
== END 2022-03-09 07:27 | disposition home or self-care (01) ==
PROVIDERS: Emergency Provider Family Medicine
DX: S22.41XA Multiple fractures of ribs, right side, initial encounter for closed fracture (principal); W00.1XXA Fall from stairs and steps due to ice and snow, initial encounter; J45.909 Unspecified asthma, uncomplicated
CPT/HCPCS: 71101; 96374; 96375; 99284; J2270; J2405

== ENCOUNTER 2022-03-09 18:07 | Emergency (ER) | payer SELFPAY ==
[2022-03-09 18:11] VITALS: BP 153/95; PULSE 101; TEMP 36.8; O2SAT 96; BMI 31.8
--- NOTE | 2022-03-09 18:17 | ECG_ITS ---
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 Measurements Intervals [place] Rate: 95 P: 73 [place]: 137 QRS: 70 QRSD: 96 T: 46 QT: 333 QTc: 419 Interpretive Statements SINUS RHYTHM No previous ECG available for comparison Electronically Signed On 03-09-2022 18:25:11 SAP BUSINESS ANALYST by Anthony Felix M.D. [email or web address]
== END 2022-03-09 22:50 | disposition left against medical advice (07) ==
PROVIDERS: Emergency Provider Family Medicine
DX: Z53.21 Procedure and treatment not carried out due to patient leaving prior to being seen by health care provider (principal)
CPT/HCPCS: 93005

== ENCOUNTER 2022-03-25 12:40 | Emergency (ER) | payer SELFPAY ==
[2022-03-25 13:26] VITALS: BP 170/101; PULSE 69; TEMP 36.6; O2SAT 96; BMI 31.1
--- NOTE | 2022-03-25 13:26 | W.ED.GENADLT ---
HPI - General Adult General: Chief complaint: General Medical Stated complaint: Asthma, hard time breathing Time Seen by Provider: 03/25/22 13:26 History of Present Illness: Patient is a 46-year-old male comes to the ED for medication refill. Patient says he has history of asthma and is a smoker. He is having an asthma flareup and he ran out of his inhaler. He would like to get an albuterol inhaler refill here in the ED. That he has been having some wheezing and a cough for the past couple days. Denies any other symptoms. Associated symptoms: Deny chest pain, dyspnea, headache(s), nausea, rash, palpitations or vomiting Review of Systems Const: Denies: fever(s), chills or fatigue Eyes: Denies: change in vision or eye discomfort ENMT: Denies: throat pain, odynophagia, nasal discharge or nasal congestion Card: Denies: chest pain, palpitations, edema, swelling of feet/ankles, dyspnea on exertion or orthopnea Resp: Reports: non-productive cough and wheezing; Denies: dyspnea or productive cough GI: Denies: abdominal pain, nausea, vomiting, diarrhea, constipation or hematochezia : Denies: flank pain, difficulty urinating, dysuria or hematuria Musc: Denies: neck pain, back pain or extremity swelling Skin/Breast: Denies: rash or new lesions Neuro: Denies: headache(s), numbness in extremities or weakness in extremities [facility] ED PFSH: Medical History History of asthma Surgical History History of bowel resection Family History Father Diabetes Social History Smoking and tobacco status: never smoked Alcohol intake: former Physical Exam Const: COMMON NORMALS: no acute distress, patient oriented x3 and alert HENMT: COMMON NORMALS: normocephalic HEAD & SCALP: normocephalic MOUTH: Normal oral and palatal mucosa present THROAT: posterior oropharynx normal and uvula midline Neck/C-Spine: COMMON NORMALS: supple GENERAL: Yes normal visual inspection Resp: COMMON NORMALS: normal respiratory effort, No retractions and No use of accessory muscles AUSCULTATION: wheezes expiratory wheezes and throughout Cardio: COMMON NORMALS: regular rate, regular rhythm, S1 normal heart sound present, S2 normal heart sound present, No gallops present (Cardio), No clicks present (Cardio), No murmurs present (Cardio) and Peripheral pulses 2+ throughout RATE: regular rate RHYTHM: regular rhythm HEART SOUNDS: S1 normal heart sound present and S2 normal heart sound present PERIPHERAL PULSES: Peripheral pulses 2+ throughout GI: COMMON NORMALS: Normal to inspection, nondistended, normoactive bowel sounds present, Soft to palpation, non-tender and no masses PALPATION: Yes Soft to palpation : COMMON NORMALS: Yes no CVA tenderness BLADDER/KIDNEY EXAM: Yes no CVA tenderness Back/Pelvis: COMMON NORMALS: no CVA tenderness Extremity: COMMON NORMALS: normal to inspection Neuro: COMMON NORMALS: patient oriented x3 SENSORIUM/ORIENTATION: Yes alert GAIT: Yes Normal gait present Skin: GENERAL SKIN EXAM: dry skin Course Vital Signs: Vital signs: Vital Signs Temperature 98 F 03/25/22 13:26 Pulse Rate 69 03/25/22 13:26 Blood Pressure 170/101 03/25/22 13:26 Pulse Oximetry 96 03/25/22 13:26 Oxygen Delivery Me thod 03/25/22 13:26 [facility] - General Adult Medical Decision Making Patient is a 46-year-old male comes to the ED for medication refill. Patient says he has history of asthma and is a smoker. He is having an asthma flareup and he ran out of his inhaler. He would like to get an albuterol inhaler refill here in the ED. That he has been having some wheezing and a cough for the past couple days. Denies any other symptoms. Vitals are stable. Patient was seen in triage he appears nontoxic in no acute distress or pain. Exam shows some expiratory wheezing throughout lungs but rest of exam is benign. I talked with patient about getting him a breathing treatment, but patient did not want to stick around and wait for breathing treatment. He just wanted to get a refill on his albuterol. He was diagnosed with asthma exacerbation and was discharged home with a prescription for prednisone, azithromycin and albuterol inhaler. Strict return to ED precautions given. Follow-up with PCP within the next couple days for reevaluation. Patient understood and agreed with plan. Discharge Plan Discharge Patient Disposition: Home Clinical Impression: Asthma exacerbation, mild Condition: Stable Prescriptions: New prednisone 20 mg tablet 20 mg PO BID 7 Days Qty: 14 0RF azithromycin 250 mg tablet See Rx Instructions .ROUTE .COMPLEX Qty: 6 0RF Rx Instructions: For 250 mg dose pack: take 500 mg today (day 1), then 250 mg for 4 days (days 2-5) albuterol sulfate 90 mcg/actuation HFA aerosol inhaler 2 inh inhalation Q6H PRN (Reason: shortness of breath or wheezing) Qty: 8.5 2RF No Action diclofenac sodium 50 mg tablet,delayed release (DR/EC) 50 mg PO Q12H PRN (Reason: pain) Qty: 20 0RF lidocaine 5 % adhesive patch,medicated 1 patch topical DAILY Qty: 15 0RF Rx Instructions: leave on most painful area for up to 12 hrs Ventolin HFA 90 mcg/actuation HFA aerosol inhaler 2 inh inhalation Q4H PRN (Reason: shortness of breath or wheezing) Qty: 8.5 1RF tramadol 50 mg tablet 50 mg PO Q6H PRN (Reason: pain) Qty: 20 0RF albuterol sulfate 90 mcg/actuation HFA aerosol inhaler 2 inh INHALATION Q4H PRN (Reason: shortness of breath or wheezing) Qty: 18 0RF Discharge Orders: Discharge ED (Routine); Ordered 03/25/22 Ordered By: Lion Hobbs Discharge Diet: Regular Discharge Activity: Increase activity as tolerated Patient Instructions: Asthma Exacerbation - Adult Activity Restrictions/Additional Instructions: Follow-up with medical provider as directed. Take medications as prescribed. Return to the ER or your medical provider if condition worsens. Please read and understand discharge instructions. Thank you for choosing [facility] for your healthcare needs today. Please realize this is an emergency room and that we are providing you with a medical screening exam and this may not be complete and all inclusive of all the testing and or work up that you may need to determine your ailment or severity of your illness. It is very important that you follow up as instructed or that you return to the Emergency Department should you have concerns or if your condition changes or worsens in any way. Coding Level of Care Code ED Natural Resources Engineer for [employer] Exam Comprehensive
== END 2022-03-25 13:30 | disposition home or self-care (01) ==
PROVIDERS: Emergency Provider Physician Assistant
DX: J45.901 Unspecified asthma with (acute) exacerbation (principal)
CPT/HCPCS: 99283

== ENCOUNTER 2022-05-12 11:12 | Emergency (ER) | payer SELFPAY ==
[2022-05-12 11:29] VITALS: BP 141/97; PULSE 81; RESP 26; TEMP 36.6; O2SAT 98; BMI 32.5
--- NOTE | 2022-05-12 11:36 | XR_ITS ---
WS: [id number] Exam: XR chest 1V portable [id number] Date/Time of Exam: 05/12/2022 11:37 AM Reason For Exam: wheezing Comparison 03/09/2022. The lungs are clear and fully expanded. No pleural effusions. Normal cardiomediastinal silhouette. At least one old right rib fracture noted involving the sixth rib. Old left clavicle fracture. XR/XR chest 1V portable [id number] IMPRESSION: 1. No acute cardiopulmonary finding.
--- NOTE | 2022-05-12 11:43 | ED_ITS ---
HPI - Asthma General: Chief Complaint: Asthma Stated Complaint: asthma attack Time Seen by Provider: 05/12/22 11:37 History of Present Illness: Patient is a 46-year-old male who comes to the ED with wheezing. Patient has a history of asthma and ran out of his inhaler. Patient says he started developing some wheezing over the past couple days and since he does not have his inhaler right now it has not gotten any better. Endorses coughing. Denies any fevers. Patient is adamant that he does not want any medical treatment here in the ED and just wants refill prescription for his inhaler. He does not have a primary care physician. Associated symptoms: Deny chest pain, fever(s), non-productive cough or productive cough Review of Systems Const: Denies: fever(s), chills or fatigue Eyes: Denies: change in vision or eye discomfort ENMT: Denies: throat pain, odynophagia, nasal discharge or nasal congestion Card: Denies: chest pain, palpitations, edema, swelling of feet/ankles, dyspnea on exertion or orthopnea Resp: Reports: dyspnea and wheezing; Denies: productive cough or non-productive cough GI: Denies: abdominal pain, nausea, vomiting, diarrhea, constipation or hematochezia : Denies: flank pain, difficulty urinating, dysuria or hematuria Musc: Denies: neck pain, back pain or extremity swelling Skin/Breast: Denies: rash or new lesions Neuro: Denies: headache(s), numbness in extremities or weakness in extremities [facility] ED PFSH: Medical History History of asthma Surgical History History of bowel resection Family History Father Diabetes Social History Smoking and tobacco status: never smoked Alcohol intake: former Physical Exam Const: COMMON NORMALS: no acute distress, patient oriented x3 and alert GENERAL APPEARANCE: cooperative HENMT: COMMON NORMALS: normocephalic HEAD & SCALP: normocephalic MOUTH: Normal oral and palatal mucosa present THROAT: posterior oropharynx normal and uvula midline Neck/C-Spine: COMMON NORMALS: supple GENERAL: Yes normal visual inspection Resp: COMMON NORMALS: normal respiratory effort, No retractions and No use of accessory muscles AUSCULTATION: wheezes (Expiratory wheezing throughout all lung nayak) expiratory wheezes and throughout Cardio: COMMON NORMALS: regular rate, regular rhythm, S1 normal heart sound present, S2 normal heart sound present, No gallops present (Cardio), No clicks present (Cardio), No murmurs present (Cardio) and Peripheral pulses 2+ throughout RATE: regular rate RHYTHM: regular rhythm HEART SOUNDS: S1 normal heart sound present and S2 normal heart sound present PERIPHERAL PULSES: Peripheral pulses 2+ throughout GI: COMMON NORMALS: Normal to inspection, nondistended, normoactive bowel sounds present, Soft to palpation, non-tender and no masses PALPATION: Yes Soft to palpation : COMMON NORMALS: Yes no CVA tenderness BLADDER/KIDNEY EXAM: Yes no CVA tenderness Back/Pelvis: COMMON NORMALS: no CVA tenderness Extremity: COMMON NORMALS: normal to inspection Neuro: COMMON NORMALS: patient oriented x3 SENSORIUM/ORIENTATION: Yes alert GAIT: Yes Normal gait present Skin: GENERAL SKIN EXAM: dry skin Course Vital Signs: Vital signs: Vital Signs Temperature 97.8 F 05/12/22 11:29 Pulse Rate 84 05/12/22 12:00 Respiratory Rate 22 H 05/12/22 12:00 Blood Pressure 141/97 05/12/22 11:29 Pulse Oximetry 98 05/12/22 12:00 Oxygen Delivery Me thod 05/12/22 11:29 MDM - Asthma Medical Decision Making Patient is a 46-year-old male who comes to the ED with wheezing. Patient has a history of asthma and ran out of his inhaler. Patient says he started developing some wheezing over the past couple days and since he does not have his inhaler right now it has not gotten any better. Endorses coughing. Denies any fevers. Patient is adamant that he does not want any medical treatment here in the ED and just wants refill prescription for his inhaler. He does not have a primary care physician. Vitals are stable. Exam shows a patient nontoxic in no acute distress. He does have wheezing in all lung nayak bilaterally. Chest x-ray showed no acute findings. Patient denies any other treatment here in the ED and does not want a DuoNeb breathing treatment. Patient signed AMA form and was discharged home with a prescription for budesonide inhaler, albuterol inhaler and some prednisone. Diagnosed with acute exacerbation of asthma. told to follow-up with PCP within the next week for reevaluation. Return to ED precautions given. Patient understood and agreed with plan. Lab Data Radiology Impressions Chest X-Ray 05/12/22 11:36 IMPRESSION: 1. No acute cardiopulmonary finding. Discharge Plan Discharge Patient Disposition: Home Clinical Impression: Asthma with acute exacerbation Qualifiers: Asthma severity: mild Asthma persistence: unspecified Qualified Code(s): J45.901 - Unspecified asthma with (acute) exacerbation Condition: Stable Prescriptions: New albuterol sulfate 90 mcg/actuation HFA aerosol inhaler 2 inh inhalation Q6H PRN (Reason: shortness of breath or wheezing) Qty: 8.5 0RF Medrol (Steve) 4 mg tablets,dose pack See Rx Instructions .ROUTE .COMPLEX Qty: 21 0RF Rx Instructions: orally per package directions budesonide 180 mcg/actuation aerosol powdr breath activated 1 inh inhalation DAILY Qty: 1 0RF No Action diclofenac sodium 50 mg tablet,delayed release (DR/EC) 50 mg PO Q12H PRN (Reason: pain) Qty: 20 0RF lidocaine 5 % adhesive patch,medicated 1 patch topical DAILY Qty: 15 0RF Rx Instructions: leave on most painful area for up to 12 hrs Ventolin HFA 90 mcg/actuation HFA aerosol inhaler 2 inh inhalation Q4H PRN (Reason: shortness of breath or wheezing) Qty: 8.5 1RF azithromycin 250 mg tablet See Rx Instructions .ROUTE .COMPLEX Qty: 6 0RF Rx Instructions: For 250 mg dose pack: take 500 mg today (day 1), then 250 mg for 4 days (days 2-5) albuterol sulfate 90 mcg/actuation HFA aerosol inhaler 2 inh inhalation Q6H PRN (Reason: shortness of breath or wheezing) Qty: 8.5 2RF tramadol 50 mg tablet 50 mg PO Q6H PRN (Reason: pain) Qty: 20 0RF albuterol sulfate 90 mcg/actuation HFA aerosol inhaler 2 inh INHALATION Q4H PRN (Reason: shortness of breath or wheezing) Qty: 18 0RF Discharge Orders: Discharge ED (Routine); Ordered 05/12/22 Ordered By: Lion Hobbs Discharge Diet: Regular Discharge Activity: Increase activity as tolerated Patient Instructions: Asthma Exacerbation - Adult Activity Restrictions/Additional Instructions: Follow-up with medical provider as directed in the next 5 to 7 days for reevaluation. Take medications as prescribed. Return to the ER or your medical provider if condition worsens. Please read and understand discharge instructions. Thank you for choosing [facility] for your healthcare needs today. Please realize this is an emergency room and that we are providing you with a medical screening exam and this may not be complete and all inclusive of all the testing and or work up that you may need to determine your ailment or severity of your illness. It is very important that you follow up as instructed or that you return to the Emergency Department should you have concerns or if your condition changes or worsens in any way. Coding Level of Care Code ED Racecourse Barrier Attendant for Ramandeep Fwsteffanie Exam Comprehensive
[2022-05-12 12:00] VITALS: PULSE 84; RESP 22; O2SAT 98
== END 2022-05-12 12:02 | disposition home or self-care (01) ==
PROVIDERS: Emergency Provider Physician Assistant
DX: J45.901 Unspecified asthma with (acute) exacerbation (principal)
CPT/HCPCS: 71045; 99283

== ENCOUNTER 2022-11-30 09:43 | Emergency (ER) | payer SELFPAY ==
[2022-11-30 09:54] VITALS: BP 162/91; PULSE 98; RESP 18; TEMP 37; O2SAT 98; BMI 29.8
--- NOTE | 2022-11-30 10:32 | XRR_ITS ---
PROCEDURE INFORMATION: Exam: XR Left Ribs with PA Chest Exam date and time: 11/30/2022 11:01 AM Age: 47 years old Clinical indication: Injury or trauma; Rib area, left side; Blunt trauma; Injury details: Fall hit mid lt ribs TECHNIQUE: Imaging protocol: Radiologic exam of the left ribs with PA chest. Views: 3 views COMPARISON: CR XR chest 1V portable [id number] 05/12/2022 11:53 AM FINDINGS: Lungs: Unremarkable. No consolidation. Pleural spaces: Unremarkable. No pleural effusion. No pneumothorax. Heart/Mediastinum: Unremarkable. No cardiomegaly. Bones/joints: No acute osseous fractures are identified. Healed fracture deformity of the lateral right 6th rib again noted. Healed fracture deformity of the left clavicle again noted. XR/XR ribs LT mn 3V w CXR1V [id number] IMPRESSION: No acute fractures identified.
[2022-11-30 10:35] LABS: Add Urine Microscopic? NO; Charge for UA Resulting for Rev
--- NOTE | 2022-11-30 10:43 | ED_ITS ---
HPI - Fall General: Chief Complaint: Fall Stated Complaint: fall off ladder this morning, rib pain Time Seen by Provider: 11/30/22 09:49 Source: patient Mode of arrival: ambulatory History of Present Illness: 47-year-old male was cleaning out gutters as at home was reaching too far and fell off of the ladder landed on his left side on a rock. Happened immediately prior to arrival here he is not on any anticoagulant. He has not had any hemoptysis or shortness of breath does have pain with deep inspiration. Has a history of some COPD and is on multiple inhaled medications. MD complaint: fall Onset (ago): minute(s) Fall from: from height (distance) (Latter) Place fall occurred: home Loss of consciousness: None Prolonged down time: no Symptoms prior to fall: none Context: tripped/slipped Location of injury: chest Severity: moderate Quality: sharp Associated symptoms-after fall: Reports chest pain; Denies abdominal pain, confusion, difficulty walking, headache(s), hematuria, lightheadedness, neck pain, numbness, short of breath, vertigo or weakness Review of Systems Const: Denies: fever(s), chills, body aches, change in appetite, fatigue or malaise ENMT: Denies: throat pain, ear or mastoid pain, nasal discharge or nasal congestion Card: Reports: chest pain; Denies: palpitations, irregular heart rhythm or lightheadedness Resp: Reports: pain on inspiration; Denies: dyspnea, productive cough or non-productive cough GI: Denies: abdominal pain, nausea or vomiting : Denies: flank pain, dysuria, urinary frequency, urinary urgency or hematuria Musc: Denies: neck pain or back pain Skin/Breast: Denies: rash or pruritus Neuro: Denies: headache(s), difficulty walking, vertigo or confusion PFSH ED PFSH: Medical History History of asthma Surgical History History of bowel resection Family History Father Diabetes Social History Smoking and tobacco status: never smoked Alcohol intake: former Substance/Drug Use: never Physical Exam Const: GENERAL APPEARANCE: cooperative and comfortable ORIENTATION/CONSCIOUSNESS: Yes awake, Yes oriented to person, Yes oriented to place and Yes oriented to time HENMT: COMMON NORMALS: normocephalic, atraumatic and hearing grossly normal bilaterally HEAD & SCALP: normocephalic and atraumatic Resp: COMMON NORMALS: normal respiratory effort, No retractions, No use of accessory muscles and clear to auscultation bilaterally AUSCULTATION: clear to auscultation bilaterally Cardio: COMMON NORMALS: regular rate, regular rhythm and No murmurs present (Cardio) RATE: regular rate RHYTHM: regular rhythm GI: COMMON NORMALS: Soft to palpation and No hepatosplenomegaly present AUSCULTATION: Yes normoactive bowel sounds PALPATION: Yes Soft to palpation, No Tenderness to palpation present (GI), No Guarding due to palpation present (GI) and Yes No hepatosplenomegaly present Extremity: COMMON NORMALS: normal to inspection, capillary refill normal, no clubbing, cyanosis or edema, no calf tenderness and no pedal edema Neuro: SENSORIUM/ORIENTATION: Yes oriented to person, Yes oriented to place and Yes oriented to time Skin: COMMON NORMALS: no rashes or lesions noted GENERAL SKIN EXAM: no rashes or lesions noted Course 2 Vital Signs: Vital signs: Vital Signs Temperature 98.6 F 11/30/22 09:54 Pulse Rate 98 11/30/22 09:54 Respiratory Rate 18 11/30/22 09:54 Blood Pressure 162/91 11/30/22 09:54 Pulse Oximetry 98 11/30/22 09:54 Oxygen Delivery Me thod Room Air 11/30/22 09:54 MDM - Fall Medical Decision Making No acute fracture on x-ray. No crepitus no pneumothorax. Diclofenac to use as needed. Ice as needed. Medical Records I reviewed the patient's medical records. Lab Data I reviewed the patient's lab results. 11/30/22 11:45 11/30/22 11:45 Radiology Impressions Ribs X-Ray 11/30/22 10:32 IMPRESSION: No acute fractures identified. Laboratory Results WBC 6.8 10^3/uL (4.0-10.0) 11/30/22 11:45 RBC 5.11 10^6/uL (4.1-5.3) 11/30/22 11:45 Hgb 15.2 g/dL (11.7-16.6) 11/30/22 11:45 Hct 45.3 % (42.0-52.0) 11/30/22 11:45 MCV 88.6 fl (80-94) 11/30/22 11:45 MCH 29.7 pg (28.0-34.0) 11/30/22 11:45 MCHC 33.6 g/dL (30.0-36.0) 11/30/22 11:45 RDW 13.1 % (12.1-15.1) 11/30/22 11:45 Plt Count 219 10^3/cmm (130-400) 11/30/22 11:45 MPV 11.1 fL (7.4-10.4) H 11/30/22 11:45 Neut % (Auto) 76.2 % 11/30/22 11:45 Lymph % (Auto) 14.7 % 11/30/22 11:45 Meigs % (Auto) 5.9 % 11/30/22 11:45 Eos % (Auto) 2.4 % 11/30/22 11:45 Baso % (Auto) 0.4 % 11/30/22 11:45 Neut # (Auto) 5.14 10^3/uL (1.8-7.7) 11/30/22 11:45 Lymph # (Auto) 1.0 10^3/uL (0.8-4.8) 11/30/22 11:45 Meigs # (Auto) 0.4 10^3/uL (0.2-0.9) 11/30/22 11:45 Eos # (Auto) 0.2 10^3/uL (0.0-0.8) 11/30/22 11:45 Baso # (Auto) 0.0 10^3/uL (0.0-0.1) 11/30/22 11:45 Nucleated RBC % (auto) 0 % 11/30/22 11:45 Nucleated RBCs # 0.0 /100WBC 11/30/22 11:45 Sodium 137 mmol/L (136-145) 11/30/22 11:45 Potassium 4.5 mmol/L (3.5-5.1) 11/30/22 11:45 Chloride 106 mmol/L (98-107) 11/30/22 11:45 Carbon Dioxide 22 mmol/L (22-29) 11/30/22 11:45 Anion Gap 13.5 (5-19) 11/30/22 11:45 BUN 9 mg/dL (6-20) 11/30/22 11:45 Creatinine 0.7 mg/dL (0.7-1.2) 11/30/22 11:45 GFR Calculation 121.4 mL/min (90-130) 11/30/22 11:45 Glucose 106 mg/dL (65-115) 11/30/22 11:45 Calculated Osmolality 283 mOsm/kg (285-295) L 11/30/22 11:45 Calcium 9.4 mg/dL (8.5-10.5) 11/30/22 11:45 Total Bilirubin 0.3 mg/dL (0.15-1.2) 11/30/22 11:45 AST 23 U/L (0-40) 11/30/22 11:45 ALT 39 U/L (0-41) 11/30/22 11:45 Alkaline Phosphatase 61 U/L (40-130) 11/30/22 11:45 Total Protein 7.2 g/dL (6.6-8.7) 11/30/22 11:45 Albumin 4.3 g/dL (3.5-5.2) 11/30/22 11:45 Globulin 2.9 g/dL (1.3-4.6) 11/30/22 11:45 Urine Color Straw (Yellow) 11/30/22 10:30 Urine Appearance Clear (CLEAR) 11/30/22 10:30 Urine pH 5 (5-7) 11/30/22 10:30 Ur Specific [place] 1.005 (1.005-1.030) 11/30/22 10:30 Urine Protein Neg (Negative) 11/30/22 10:30 Urine Glucose (UA) Norm (Normal) 11/30/22 10:30 Urine Ketones Negative (Negative) 11/30/22 10:30 Urine Blood Neg (Negative) 11/30/22 10:30 Urine Nitrate Negative (Negative) 11/30/22 10:30 Urine Bilirubin Neg (Negative) 11/30/22 10:30 Urine Urobilinogen Norm mg/dL (Negative) 11/30/22 10:30 Ur Leukocyte Esterase Negative (Negative) 11/30/22 10:30 Discharge Plan Discharge Patient Disposition: Home Clinical Impression: Rib pain on left side Condition: Stable Prescriptions: New diclofenac sodium 75 mg tablet,delayed release (DR/EC) 75 mg PO Q12H PRN (Reason: pain) Qty: 20 0RF No Action albuterol sulfate 90 mcg/actuation HFA aerosol inhaler 2 inh inhalation Q6H PRN (Reason: shortness of breath or wheezing) Qty: 8.5 2RF Discharge Orders: Discharge ED (Routine); Ordered 11/30/22 Ordered By: Prabhjot Cavanaugh Patient Instructions: Opioid Safety, Pain Management Coding Level of Care Code ED Event Security Officer for Ramandeep Cleaning
[2022-11-30 10:56] LABS: Bilirubin Urine Neg (Negative); Blood Urine Neg (Negative); Glucose Urine UA Norm (Normal); Ketones Urine Negative (Negative); Leukocyte Esterase Urine Negative (Negative); Nitrate Urine Negative (Negative); Protein Urine Neg (Negative); Specific Gravity, Urine 1.005 (1.005-1.030); Urine Appearance Clear (CLEAR); Urine Color Straw (Yellow); Urobilinogen Urine Norm (Negative); pH Urine 5 (5-7)
[2022-11-30 11:53] LABS: Basophils % 0.4 %; Eosinophils # 0.2 10^3/uL (0.0-0.8); Eosinophils % 2.4 %; Hematocrit 45.3 % (42.0-52.0); Hemoglobin 15.2 g/dL (11.7-16.6); Lymphocytes % 14.7 %; Mean Corpuscular HGB Conc 33.6 g/dL (30.0-36.0); Mean Corpuscular Hemoglobin 29.7 pg (28.0-34.0); Mean Corpuscular Volume 88.6 fl (80-94); Mean Platelet Volume 11.1 fL (7.4-10.4); Monocytes # 0.4 10^3/uL (0.2-0.9); Monocytes % 5.9 %; Neutrophils # 5.14 10^3/uL (1.8-7.7); Neutrophils % 76.2 %; Nucleated Red Blood Cells % 0 %; Platelet Count 219 10^3/cmm (130-400); Red Blood Count 5.11 10^6/uL (4.1-5.3); Red Cell Distribution Width 13.1 % (12.1-15.1); White Blood Count 6.8 10^3/uL (4.0-10.0)
[2022-11-30 12:11] LABS: Alanine Aminotransferase 39 U/L (0-41); Albumin Level 4.3 g/dL (3.5-5.2); Alkaline Phosphatase 61 U/L (40-130); Anion Gap 13.5 (5-19); Aspartate Amino Transferase 23 U/L (0-40); Blood Urea Nitrogen 9 mg/dL (6-20); Calcium 9.4 mg/dL (8.5-10.5); Carbon Dioxide 22 mmol/L (22-29); Chloride 106 mmol/L (98-107); Globulin 2.9 g/dL (1.3-4.6); Glomerular Filtration Rate 121.4 mL/min (90-130); Glucose 106 mg/dL (65-115); Osmolality Calculated 283 mOsm/kg (285-295); Potassium 4.5 mmol/L (3.5-5.1); Sodium 137 mmol/L (136-145); Total Bilirubin 0.3 mg/dL (0.15-1.2); Total Protein 7.2 g/dL (6.6-8.7)
== END 2022-11-30 12:18 | disposition home or self-care (01) ==
PROVIDERS: Emergency Provider Family Medicine
DX: R07.81 Pleurodynia (principal)
CPT/HCPCS: 71101; 80053; 81003; 85025; 99284